=== PATIENT | female | born 1990 | race Caucasian/White ===

== ENCOUNTER → 2020-02-26 07:07 | Outpatient (CLI) | payer OTHER, SELFPAY ==
[2020-02-26 07:59] LABS: Appearance Urine UA CLEAR; Bilirubin Urine UA NEGATIVE (NEGATIVE); Color Urine UA YELLOW; Glucose Urine UA NEGATIVE (Negative); Ketones Urine UA NEGATIVE (NEGATIVE); Leukocyte Esterase Urine UA NEGATIVE (NEGATIVE); Nitrite Urine UA NEGATIVE (Negative); Occult Blood Urine UA NEGATIVE (Negative); Protein Urine UA NEGATIVE (Negative); Specific Gravity Urine UA 1.015 (1.000-1.035); Urobilinogen Urine UA 0.2 E.U./dL (0.2)
[2020-02-26 08:06] LABS: Add Manual Diff / Slide Review NO; Basophils Absolute Auto 0 /uL (0-100); Basophils Percent Auto 0.3 % (0-2); Eosinophils Absolute Auto 100 /uL (0-450); Eosinophils Percent Auto 0.9 % (2-4); Hematocrit 37.2 % (36-46); Hemoglobin 12.5 g/dL (12.0-16.0); Lymphocytes Absolute Auto 1500 /uL (1100-4500); Lymphocytes Percent Auto 23.6 % (25-40); Mean Corpuscular HGB Conc 33.6 % (30-36); Mean Corpuscular Hemoglobin 27.4 PG (26-34); Mean Corpuscular Volume 81.3 fL (80-100); Monocytes Absolute Auto 400 /uL (0-900); Monocytes Percent Auto 5.4 % (3-14); Neutrophils Absolute Auto 4500 /uL (1500-7000); Neutrophils Percent Auto 69.8 % (50-75); Platelet Count 210 X10^3/uL (150-400); Red Blood Cell Count 4.57 X10^6/uL (4.0-5.2); Red Cell Distribution Width 14.3 % (11.6-14.8); White Blood Cell Count 6.5 X10^3/uL (4.5-11.0)
[2020-02-26 09:53] LABS: Hepatitis B Surface Antigen NEGATIVE s/c (NEGATIVE); Rubella Antibody IgG 13.5 IU/mL (>15)
[2020-02-26 09:57] LABS: HIV 1 & 2 Ab/Ag 4th Gen Combo NEGATIVE (NEGATIVE); Hep C Virus Ab w/Reflex Quant NEGATIVE s/c (NEGATIVE)
[2020-02-27 04:36] LABS: RPR Screen Non Reactive (Non Reactive)
[2020-02-27 05:11] LABS: Varicella IgG Antibody 685 index (Immune >165)
== END ==
PROVIDERS: PCP Family Medicine; Referring Provider Family Medicine; Visit Provider Family Medicine
DX: Z34.81 Encounter for supervision of other normal pregnancy, first trimester (principal)
CPT/HCPCS: 36415; 80055; 81003; 86787; 86803; 86850; 86900; 86901; 87086; 87389

== ENCOUNTER → 2020-03-24 07:50 | Outpatient (CLI) | payer OTHER, SELFPAY ==
[2020-03-24 11:14] LABS: GTT (PREG) 1 Hour PP 50gm Dose 104 mg/dL (76-139)
== END ==
PROVIDERS: PCP Family Medicine; Referring Provider Family Medicine; Visit Provider Family Medicine
DX: Z34.81 Encounter for supervision of other normal pregnancy, first trimester (principal); Z86.32 Personal history of gestational diabetes; Z3A.09 9 weeks gestation of pregnancy
CPT/HCPCS: 36415; 82950

== ENCOUNTER → 2020-04-08 16:25 | Outpatient (CLI) | payer OTHER, SELFPAY ==
[2020-04-11 20:54] LABS: AFP, Serum 37.9 ng/mL (.); Calc Gestational Age EDD (.); Estriol, Free 0.88 ng/mL (.); Inhibin A, Dimeric 101.99 pg/mL (.); Inhibin A, MoM 0.71 (.); Maternal Ethnicity Other (.); Maternal Weight 183 lbs (.); Number of Fetuses No (.); OSBR Risk 1 IN 9231 (.); Results Report (.); Test Results *Screen Negative* (.); hCG, MoM 1.09 (.); hCG, Serum 29939 mIU/mL (.)
== END ==
PROVIDERS: PCP Family Medicine; Referring Provider Family Medicine; Visit Provider Family Medicine
DX: Z34.02 Encounter for supervision of normal first pregnancy, second trimester (principal); Z3A.17 17 weeks gestation of pregnancy
CPT/HCPCS: 36415; 82105; 82677; 84702; 86336

== ENCOUNTER → 2020-04-28 12:23 | Outpatient (CLI) | payer OTHER, SELFPAY ==
--- NOTE | 2020-04-28 12:24 | DI.US.S_ITS ---
PROCEDURE: US OB >= 14 WEEKS FETUS INDICATIONS: anatomy screening OUTSIDE/PRIOR DATING DATA: First dating scan (date and location): 02/12/2020 . Estimated date of delivery (KIMBERLY) from first dating scan: 09/15/2020 . TECHNIQUE: Real-time scanning was performed of the fetus, with image documentation and biometric measurements. Endovaginal scanning: No COMPARISON: None. FINDINGS: General: A single living intrauterine gestation is present. Presentation: Vertex. Placenta: Placental position is anterior , without previa. Amniotic fluid index: 12.5 cm, normal range is 5-24 cm. heart rate: 145 beats per minute. Maternal cervical canal: 4.8 cm long. Normal lower limit is 2.5 cm. biometrics: Biparietal diameter: 21 weeks 4 days Head circumference: 21 weeks Abdominal circumference: 21 weeks 4 days Femur length: 21 weeks 3 days Estimated gestational age from initial scan: 20 weeks 0 days Composite gestational age from present scan: 21 weeks 3 days Estimated weight and percentile: 429 g, 99th percentile Measurement variability for biometric dating: +/- 7 days from 14 weeks to 15 weeks 6 days gestation, +/- 10 days from 16 weeks to 21 weeks 6 days gestation, +/- 2 weeks from 22 weeks to 27 weeks 6 days gestation, +/- 3 weeks for 28 weeks gestation or later. weight reference: 4500 g or EFW >90/95% is considered macrosomia or large for gestational age. EFW <10% is small for gestational age. EFW 5% or less is considered intra-uterine growth restriction. Anatomic survey: Neuro: Ventricles are non-dilated at less than 10 mm. Cisterna magna is normal at 3-11 mm. Cerebellum is normal in size and morphology. Nuchal skin fold: Normal at less than 6 mm between 14-21 weeks gestational age. Face: Nose and lips, facial profile are normal. Spine: No evidence for spina bifida. Heart: 4-chambered heart is present, with normal ventricular outflow tracts. Diaphragm: Diaphragm is intact. Stomach: Left-sided stomach is present. Kidneys: No hydronephrosis. Normal is less than 5 mm in 2nd trimester, less than 7 mm in 3rd trimester. Cord: 3-vessel cord has orthotopic insertion. Bladder: Normal in size. Extremities: All 4 extremities identified. IMPRESSION: 1. Single living fetus redemonstrated and interval growth is greater than expected with estimated weight 99th percentile. Follow-up recommended. 2. Normal anatomic survey. Dictated by: Omar Ellis Joe Interpreted: Chris Rosenthal MD on 04/28/2020 at 14:11 Approved by: Chris Rosenthal M.D. on 04/28/2020 at 17:30
== END ==
PROVIDERS: PCP Family Medicine; Referring Provider Family Medicine; Visit Provider Family Medicine
DX: Z36.89 Encounter for other specified antenatal screening (principal); Z3A.21 21 weeks gestation of pregnancy
CPT/HCPCS: 76811

== ENCOUNTER → 2020-06-23 07:00 | Outpatient (CLI) | payer OTHER, SELFPAY ==
[2020-06-23 08:42] LABS: Add Manual Diff / Slide Review NO; Basophils Absolute Auto 0 /uL (0-100); Basophils Percent Auto 0.2 % (0-2); Eosinophils Absolute Auto 100 /uL (0-450); Eosinophils Percent Auto 1.1 % (2-4); Hematocrit 31.5 % (36-46); Hemoglobin 10.4 g/dL (12.0-16.0); Lymphocytes Absolute Auto 1500 /uL (1100-4500); Lymphocytes Percent Auto 21.5 % (25-40); Mean Corpuscular HGB Conc 32.9 % (30-36); Monocytes Absolute Auto 400 /uL (0-900); Monocytes Percent Auto 5.6 % (3-14); Neutrophils Absolute Auto 4900 /uL (1500-7000); Neutrophils Percent Auto 71.6 % (50-75); Platelet Count 189 X10^3/uL (150-400); White Blood Cell Count 6.8 X10^3/uL (4.5-11.0)
[2020-06-23 09:10] LABS: GTT (PREG) 1 Hour PP 50gm Dose 155 mg/dL (76-139)
== END ==
PROVIDERS: PCP Family Medicine; Referring Provider Family Medicine; Visit Provider Family Medicine
DX: O09.299 Supervision of pregnancy with other poor reproductive or obstetric history, unspecified trimester (principal); Z86.32 Personal history of gestational diabetes
CPT/HCPCS: 36415; 82950; 85025

== ENCOUNTER → 2020-06-25 07:02 | Outpatient (CLI) | payer OTHER, SELFPAY ==
[2020-06-25 08:40] LABS: Glucose Fasting 91 mg/dL (70-100)
[2020-06-25 10:10] LABS: Glucose 1 Hour 156 mg/dL (70-170)
[2020-06-25 10:42] LABS: Glucose Tol Interpretation INTERPRETATION
[2020-06-25 11:21] LABS: Glucose 2 Hour 134 mg/dL (70-140)
[2020-06-25 12:41] LABS: Glucose 3 Hour 113 mg/dL (70-115)
== END ==
PROVIDERS: PCP Family Medicine; Referring Provider Family Medicine; Visit Provider Family Medicine
DX: O09.299 Supervision of pregnancy with other poor reproductive or obstetric history, unspecified trimester (principal); Z86.32 Personal history of gestational diabetes
CPT/HCPCS: 36415; 82951; 82952

== ENCOUNTER → 2020-07-01 09:48 | Outpatient (CLI) | payer OTHER, SELFPAY ==
--- NOTE | 2020-07-01 09:50 | DI.US.S_ITS ---
PROCEDURE: US OB LIMITED INDICATIONS: LGA OUTSIDE/PRIOR DATING DATA: Last menstrual period (LMP): Unknown. LMP-based estimated date of delivery (KIMBERLY): Unknown . First dating scan (date and location): 02/12/20 . Estimated date of delivery (KIMBERLY) from first dating scan: 09/15/20 . TECHNIQUE: Real-time scanning was performed of the fetus, with image documentation and biometric measurements. Endovaginal scanning: Not performed COMPARISON: [facility], OB >= 14 WEEKS FETUS, 04/28/2020, 12:39. FINDINGS: General: A single living intrauterine gestation is present. Presentation: Vertex. Placenta: Placental position is anterior left , without previa. Amniotic fluid index: 16.5 cm, normal range is 5-24 cm. heart rate: 144 beats per minute. Maternal cervical canal: 4.5 cm long. Normal lower limit is 2.5 cm. biometrics: Biparietal diameter: 7.9 cm, 31 weeks 6 days Head circumference: 29.0 cm, 32 weeks 0 days Abdominal circumference: 28.4 cm, 32 weeks 3 days Femur length: 5.7 cm, 29 weeks 6 days Estimated gestational age from initial scan: 29 weeks 1 day Composite gestational age from present scan: 31 weeks 4 days Estimated weight and percentile: 1794 g, 99th percentile. Measurement variability for biometric dating: +/- 7 days from 14 weeks to 15 weeks 6 days gestation, +/- 10 days from 16 weeks to 21 weeks 6 days gestation, +/- 2 weeks from 22 weeks to 27 weeks 6 days gestation, +/- 3 weeks for 28 weeks gestation or later. weight reference: 4500 g or EFW >90/95% is considered macrosomia or large for gestational age. EFW <10% is small for gestational age. EFW 5% or less is considered intra-uterine growth restriction. Other: Not applicable. IMPRESSION: Single living intrauterine fetus in vertex presentation. Estimated weight at the 99th percentile (as before) Normal KARENA Dictated by: Crow Trent M.D. on 07/01/2020 at 16:21 Approved by: Crow Trent M.D. on 07/01/2020 at 16:27
== END ==
PROVIDERS: PCP Family Medicine; Referring Provider Family Medicine; Visit Provider Family Medicine
DX: O36.63X0 Maternal care for excessive fetal growth, third trimester, not applicable or unspecified (principal); Z3A.31 31 weeks gestation of pregnancy
CPT/HCPCS: 36415; 76815; 86850

== ENCOUNTER → 2020-07-22 11:07 | Outpatient (CLI) | payer OTHER, SELFPAY ==
--- NOTE | 2020-07-22 12:11 | DIET.PN ---
INITIAL GESTATIONAL DIABETES ASSESSMENT ASSESS:? Ms. Araya referred for gestational diabetes. Pt is G2, P1 with hx of GDM with first . She reports FBG >95 and 1-2 hr PP 120-140. Has noticed higher fasting readings. She is very active at work ([employer]) and reports low readings most of the time during the day. ? KIMBERLY:?09/14/2020 ? WKS GESTATION:?? 32wks ?LABS: F-91 1?- 156 2?- 134 3?- 113 ? MEDS: no meds ? DIET:? B: protein oatmeal, w/ coffee w/ premier protein creamer L: [place] chipotle sandwich from [employer] Sn: crackers or pretzels w/ pb D: Steak/chicken, quinoa, veggies Ev Sn: ice cream ? HT:? 64in ? PRE-PREG WT:? 190lb ? PRE-PREG BMI:??32.6 ? CURRENT WT: 185lb ? TOTAL WT GAIN:? -5lb EXERCISE: job ([employer]) NUTRITION DX 1. Altered nutrition related lab values r/t gestational diabetes as evidenced by recent labs (OGGT). INTERVENTION 1. Discussed pathophysiology of gestational diabetes and impact of hormone and nutrition/diet on blood sugar control.? Discussed fed versus non-fed state.? 2. Recommended checking fasting, pre-meal and 1hr post prandial (3x/day).? Discussed goals for glycemic control (<95 FBG, <140 1-hr PP, <125 2-hr PP).? 3. Discussed the effect of carbohydrates/protein/fat on blood sugar control.? Stressed importance of consistent carbohydrate intake at each meal and provided instructions for recommended servings/portions of carbohydrates/protein per meal.? Provided pt with educational material. 4. Introduced carbohydrate counting and measuring carbohydrate content via servings sizes and reading nutrition labels.? Provided handouts.? Pt will need further review 5. Discussed importance of meal timing and not going >3 hours between meals.? Provided sample meal schedule for pt.? Pt agreeable.?? 6. Discussed importance a pre- vitamin and including food sources of calcium, vitamin D, iron and folic acid for baby and mother?s nutrition support. 7. Discussed caffeine intake. Recommend no more than 200 mg/day (1 cup coffee). 8. Discussed rule of 15 for hypoglycemia. 9. Recommend patient purchase Urine Ketone strips and instructed on use and when to contact provider. 10. Recommended patient continue exercise as appropriate per PCP approval. 11. Patient may need medication management, will follow-up with plan of care at next visit after reviewing glucose results.? MONITOR/EVAL: Follow up scheduled X 1 week. Good compliance expected. Review: carb sources, carb counting, portion size, meal timing, BG log, weight.
== END ==
PROVIDERS: Family Provider Family Medicine; PCP Family Medicine; Referring Provider Family Medicine; Visit Provider Family Medicine
DX: O24.410 Gestational diabetes mellitus in pregnancy, diet controlled (principal); Z3A.32 32 weeks gestation of pregnancy; Z71.3 Dietary counseling and surveillance
CPT/HCPCS: G0108

== ENCOUNTER 2020-07-28 08:48 | Outpatient (RCR) | payer OTHER, SELFPAY ==
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
--- NOTE | 2020-07-28 13:41 | PT.OPPOC ---
Physical, Occupational & Speech Therapy At [facility] Current Diagnoses Sciatica, unspecified side (07/28/20) Visit Care Team Role Provider Type Danielle Herrera MD Attending Provider Physician Family Provider Primary Care Provider Referring Provider Specialty: Family Practice Address: [address] [place] [address], [id number] Email: [email or web address] Plan Of Care PT-OP-T Assessment and Plan Start: 07/28/20 12:06 Freq: Status: Active Protocol: Document 07/28/20 09:01 (Rec: 07/28/20 12:31 [email or web address]) Physical Therapy Assessment Rehab Potential Rehabilitation Potential Excellent Evaluation Complexity Number of Personal Factors/Comorbidities 0 Number of Body Systems Impaired 1-2 Clinical Presentation at Evaluation Stable Impairments Impairments Activity Tolerance,Functional Activities,Functional Mobility ,Pain,Posture,ROM,Soft Tissue Mobility,Strength,Tone, Transfers Goals sciatic symptoms Impairment pt has sciatica symptoms during lifting, prolonged walking and standing Short Term Goal (STG) pt will be able to lift, walking and stand with pain no more than 4/10 and good understanding body mechanics. STG Duration 5 weeks Dining Room Cashier Goal (LTG) pt will be able to lift, walking and stand with pain no more than 2/10 and good understanding body mechanics. LTG Duration 10 weeks HEP Impairment pt does not have a HEP Dining Room Cashier Goal (LTG) pt will be able to complete HEP independently and safely to improve her overall functional mobility and strength LTG Duration 5 weeks activity tolerance Impairment pt tends to have increase pain by walking/ standing more than 15 mins Short Term Goal (STG) pt will be able to tolerate standing/ walking more than 30 minutes without increase in symptoms STG Duration 5 weeks Dining Room Cashier Goal (LTG) pt will be able to tolerate standing/ walking more than 60 minutes without increase in symptoms LTG Duration 10 weeks Oswestry Impairment pt scores 22 on Oswestry Short Term Goal (STG) pt will score less than 18 on Oswestry to show improved overall activity tolerance and reduced pain STG Duration 5 weeks Usp Goal (LTG) pt will score less than 15 on Oswestry to improve her overall quality of life. LTG Duration 10 weeks Assessment Summary Assessment Pt is a 30 yo woman ( due date in Mid-August) here for her chronic LBP and new onset of L anterior hip. Upon assessment, Pt presents R piriformis syndrome whose pain was reproduced with figure 4 stretch/ piriformis stretch but no signs of radiculopathy (-ve for slump test and SLR). There;s noticeable hypertonicity on lumbar paraspinals possible d/t her significant anterior pelvic tilt d/t which increases mechanical stress at lumbar spinal segments. Besides, pt has L hip flexor strain possibly d/t her anterior pelvic tilt with long standing hourse at work. Provided hip flexor stretch, tennis ball release, figure 4 stretch and clam shell for HEP . Pt will benefit from skilled therapy to address her current symptoms and expect her to cont therapy to improve her trunk stability and strength in order for her to endure her physical demanding job nature. Physical Therapy Plan Frequency and Duration Frequency of Treatment 1x/Week Duration of Treatment 10 weeks Plan of Care Start Date 07/28/20 Plan of Care End Date 10/11/20 Therapeutic Interventions Therapeutic Interventions Balance Training,Gait Training ,Home Exercise Program,Joint Mobilizations,Manual Therapy, Neuromuscular Re-education, Patient/Caregiver Education, Self-Care/Home Management,Soft Tissue Mobilization,Taping, Therapeutic Activities, Therapeutic Exercises Modalities Cold Pack/Ice Massage,Hot Packs Next Visit Focus/Plan Next Note Type Treatment Note Next Visit Plan review HEP manual on glute and piriformis piriformis stretch pelvic tilt in supine abdominal brace l hip flexor stretch Plan of Care Dates Plan of Care Start Date 07/28/20 Plan of Care End Date 10/11/20 Electronically Signed by: Geraldine Lieberman PT 07/28/20 2171 Please Sign and Return: I have reviewed this Plan of Care and certify that the skilled therapy services above are required to meet the patient?s needs. Physician Signature Date Printed Name and Credentials Clinical Instructor Signature Printed Name and Credentials
--- NOTE | 2020-08-14 09:08 | PT.OPDS ---
Current Diagnoses Sciatica, unspecified side (07/28/20) Visit Care Team Role Provider Type Danielle Herrera MD Attending Provider Physician Family Provider Primary Care Provider Referring Provider Specialty: Family Practice Address: [address] [place] [address], [facility] Email: [email or web address] Visit Number Visit Number Discharge Summary PT-OP-T Assessment and Plan Start: 07/28/20 12:06 Freq: Status: Active Protocol: Document 08/14/20 09:07 (Rec: 08/14/20 09:07 [email or web address]) Physical Therapy Plan Discharge Physical Therapy Discharge Reasons Patient Request Discharge Comments Called pt via phone today and pt said she is doing well and does not feel the need for PT anymore. Requested to be DC
== END 2020-12-30 14:49 | disposition home or self-care (01) ==
LOC: PHYS 08:48
PROVIDERS: Family Provider Family Medicine; PCP Family Medicine; Referring Provider Family Medicine; Visit Provider Family Medicine
DX: M54.30 Sciatica, unspecified side (principal)
CPT/HCPCS: 97110; 97161

== ENCOUNTER → 2020-07-29 07:47 | Outpatient (CLI) | payer OTHER, SELFPAY ==
--- NOTE | 2020-07-29 07:48 | DI.US.S_ITS ---
PROCEDURE: US OB LIMITED INDICATIONS: f/u growth, LGA, GDM OUTSIDE/PRIOR DATING DATA: First dating scan (date and location): 02/12/2020 . Estimated date of delivery (KIMBERLY) from first dating scan: 09/15/2020 . TECHNIQUE: Real-time scanning was performed of the fetus, with image documentation and biometric measurements. Endovaginal scanning: No COMPARISON: [facility], OB >= 14 WEEKS FETUS, 04/28/2020, 12:39. [facility], OB LIMITED, 07/01/2020, 9:55. FINDINGS: General: A single living intrauterine gestation is present. Presentation: Vertex. Placenta: Placental position is anterior , without previa. Amniotic fluid index: 16.4 cm, normal range is 5-24 cm. heart rate: 158 beats per minute. Maternal cervical canal: 4.9 cm long. Normal lower limit is 2.5 cm. biometrics: Biparietal diameter: 35 weeks Head circumference: 35 weeks 5 days Abdominal circumference: 38 weeks 1 day Femur length: 33 weeks 4 days Estimated gestational age from initial scan: 33 weeks 1 day Composite gestational age from present scan: 35 weeks 4 days Estimated weight and percentile: 2933 g; greater than the 99th percentile Measurement variability for biometric dating: +/- 7 days from 14 weeks to 15 weeks 6 days gestation, +/- 10 days from 16 weeks to 21 weeks 6 days gestation, +/- 2 weeks from 22 weeks to 27 weeks 6 days gestation, +/- 3 weeks for 28 weeks gestation or later. weight reference: 4500 g or EFW >90/95% is considered macrosomia or large for gestational age. EFW <10% is small for gestational age. EFW 5% or less is considered intra-uterine growth restriction. Other: Not applicable. IMPRESSION: Single living IUP redemonstrated and estimated weight is greater than the 99th percentile. Macrosomia is suspected and close clinical correlation and follow-up is recommended.. Dictated by: Omar HOOD Interpreted: Elisa Marie MD on 07/29/2020 at 9:31 Approved by: Elisa Marie M.D. on 07/29/2020 at 13:31
== END ==
PROVIDERS: Family Provider Family Medicine; PCP Family Medicine; Referring Provider Family Medicine; Visit Provider Family Medicine
DX: Z36.2 Encounter for other antenatal screening follow-up (principal); O24.419 Gestational diabetes mellitus in pregnancy, unspecified control; Z3A.35 35 weeks gestation of pregnancy
CPT/HCPCS: 76815

== ENCOUNTER → 2020-08-15 16:20 | Outpatient (CLI) | payer OTHER, SELFPAY ==
[2020-08-17 08:21] LABS: Strep Grp B PCR POS for Grp B Strep
== END ==
PROVIDERS: Family Provider Family Medicine; PCP Family Medicine; Visit Provider Family Medicine
DX: Z34.83 Encounter for supervision of other normal pregnancy, third trimester (principal); Z3A.35 35 weeks gestation of pregnancy
CPT/HCPCS: 87653

== ENCOUNTER → 2020-08-26 15:35 | Outpatient (CLI) | payer OTHER, SELFPAY ==
--- NOTE | 2020-08-26 15:37 | DI.US.S_ITS ---
PROCEDURE: US OB LIMITED INDICATIONS: LARGE FOR GESTATIONAL AGE OUTSIDE/PRIOR DATING DATA: First dating scan (date and location): 02/12/2020 . Estimated date of delivery (KIMBERLY) from first dating scan: 09/15/2020 . TECHNIQUE: Real-time scanning was performed of the fetus, with image documentation and biometric measurements. Endovaginal scanning: No COMPARISON: [facility], OB LIMITED, 07/29/2020, 8:00. FINDINGS: General: A single living intrauterine gestation is present. Presentation: Vertex. Placenta: Placental position is anterior , without previa. Amniotic fluid index: 11.3 cm, normal range is 5-24 cm. heart rate: 135 beats per minute. Maternal cervical canal: 5.5 cm long. Normal lower limit is 2.5 cm. biometrics: Biparietal diameter: 38 weeks 3 days Head circumference: 39 weeks 2 days Abdominal circumference: 41 weeks 4 days Femur length: 36 weeks 3 days Estimated gestational age from initial scan: 37 weeks 1 day Composite gestational age from present scan: 39 weeks Estimated weight and percentile: 3935 g, 99th percentile Measurement variability for biometric dating: +/- 7 days from 14 weeks to 15 weeks 6 days gestation, +/- 10 days from 16 weeks to 21 weeks 6 days gestation, +/- 2 weeks from 22 weeks to 27 weeks 6 days gestation, +/- 3 weeks for 28 weeks gestation or later. weight reference: 4500 g or EFW >90/95% is considered macrosomia or large for gestational age. EFW <10% is small for gestational age. EFW 5% or less is considered intra-uterine growth restriction. Other: Not applicable. IMPRESSION: Single living IUP redemonstrated and estimated weight is at greater than 99th percentile. Macrosomia cannot be excluded and close clinical correlation is recommended. Dictated by: Omar Ellis [facility] Interpreted: Christopher Gupta MD on 08/26/2020 at 17:24 Approved by: Christopher Gupta M.D. on 08/26/2020 at 17:31
== END ==
PROVIDERS: Family Provider Family Medicine; PCP Family Medicine; Referring Provider Family Medicine; Visit Provider Family Medicine
DX: Z36.88 Encounter for antenatal screening for fetal macrosomia (principal); Z3A.39 39 weeks gestation of pregnancy
CPT/HCPCS: 76815

== ENCOUNTER 2020-09-07 19:35 | Inpatient (IN) | payer OTHER, SELFPAY ==
[2020-09-07] MEDS: miSOPROStoL 25 MCG TABLET VAG (20:21)
[2020-09-07 21:00] LABS: COVID19 - ADMIT (NP swab/PCR) Negative (Negative)
[2020-09-07 21:01] LABS: Add Manual Diff / Slide Review NO; Basophils Absolute Auto 0 /uL (0-100); Basophils Percent Auto 0.2 % (0-2); Eosinophils Absolute Auto 100 /uL (0-450); Eosinophils Percent Auto 0.9 % (2-4); Hematocrit 35.5 % (36-46); Hemoglobin 12.1 g/dL (12.0-16.0); Lymphocytes Absolute Auto 1800 /uL (1100-4500); Lymphocytes Percent Auto 19.4 % (25-40); Mean Corpuscular Volume 85.4 fL (80-100); Monocytes Absolute Auto 600 /uL (0-900); Monocytes Percent Auto 6.4 % (3-14); Neutrophils Absolute Auto 6700 /uL (1500-7000); Neutrophils Percent Auto 73.1 % (50-75); Platelet Count 163 X10^3/uL (150-400); Red Blood Cell Count 4.16 X10^6/uL (4.0-5.2); White Blood Cell Count 9.1 X10^3/uL (4.5-11.0)
[2020-09-07 21:25] VITALS: BP 109/68
[2020-09-08] MEDS: PENICILLIN G POTASSIUM 5,000,000 UNIT in DEXTROSE 5% IN WATER 250 ML IV (08:38)
[2020-09-08] MEDS: LACTATED RINGERS 1,000 ML 100 ML IV ×2 (08:38→14:40)
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
[2020-09-08] MEDS: OXYTOCIN PREMIX 30 UNIT/500 ML PLAST..BAG IV (11:30)
[2020-09-08] MEDS: PENICILLIN G POTASSIUM 3,000,000 UNIT/50 ML FROZ.PIGGY 100 UNIT IV ×2 (12:58→16:58)
--- NOTE | 2020-09-08 13:16 | PM.OBPNLAB ---
Date/Time Date Patient Seen: 09/08/20 Time Patient Seen: 13:16 Pain Control Pain control: tolerating well Pelvic Exam Dilation (cm): 4 Effacement (%): 50 station: -3 Amniotic membrane status: Ruptured Comments: After informed consent and head noted to be applied to cervix, AROM performed with production of clear fluid. Contractions Pitocin rate (mU/min): 4 Contraction frequency (min): 2 Contraction pattern: Regular Contraction intensity: Strong/Firm Status Heart Rate Baseline: 120 Monitor Accelerations: Present Monitor Decelerations: Absent Monitor Variability: Moderate Assessment and Plan Comments: 30yo at 39w1d here for IOL due to GDMA1 with LGA fetus. Last EFW at 37w2d 3935g. Pt counseled regarding risks of vaginal delivery with possibility of shoulder dystocia extensively in clinic prior to IOL, and again this morning. Pt continues to desire attempt at vaginal delivery. Discussed that if baby without appropriate continuous descent throughout IOL, will proceed with . Received one dose cytotec overnight. Akbar placed this morning, fell out a few hours later. GBS prophylaxis adequate, AROM performed with production of copious clear fluid. GBS positive, Rh negative (received Rhogam). - Expectant management, planning on vaginal delivery - Start pitocin, titrate as tolerated - GBS positive, continue penicillin prophylaxis - already adequate - Rh negative, plan for cord blood after delivery - Epidural for pain control now - FHT reassuring
[2020-09-08] MEDS: FENT 2MCG/ML BUPIV 0.125% EPI 200 MCG/100 ML PLAST..BAG 10 MCG EPIDURAL (13:23)
[2020-09-08] MEDS: DERMOPLAST SPRAY 20% 60 ML 1 SPRAY TOP (20:55)
[2020-09-08] MEDS: IBUPROFEN 600 MG TABLET PO (20:56)
--- NOTE | 2020-09-08 21:05 | PM.OBPNLAB ---
Date/Time Date Patient Seen: 09/08/20 Time Patient Seen: 15:15 Pain Control Pain control: epidural Pelvic Exam Dilation (cm): 8 Effacement (%): 75 station: -1 Amniotic membrane status: Ruptured Contractions Contraction frequency (min): 3 Contraction pattern: Regular Contraction intensity: Strong/Firm Status status: Category ll Heart Rate Baseline: 150 Monitor Accelerations: Present Monitor Decelerations: Variable (recurrent) Monitor Variability: Moderate Assessment and Plan Comments: 30yo at 39w1d here for IOL due to GDMA1 with LGA fetus. Last EFW at 37w2d 3935g. Pt counseled regarding risks of vaginal delivery with possibility of shoulder dystocia extensively in clinic prior to IOL, and again this morning. Pt continues to desire attempt at vaginal delivery. Discussed that if baby without appropriate continuous descent throughout IOL, will proceed with . Received one dose cytotec overnight. Akbar placed this morning, fell out a few hours later. AROM with clear fluid. Now on pitocin with recurrent variable decels. Pitocin stopped, but decels have persisted. IUPC placed with amnioinfusion to begin. GBS positive, Rh negative (received Rhogam). - Expectant management, planning on vaginal delivery - Hold pitocin pending improvement in FHT - IUPC with amnioinfusion to run - FHT Category II with recurrent variable decels. If do not improve with amnioinfusion plan on . Due to high risk of shoulder dystocia already present, do not want to have vaginal delivery with already stressed baby. - GBS positive, continue penicillin prophylaxis - already adequate - Rh negative, plan for cord blood after delivery - Epidural for pain control now
--- NOTE | 2020-09-08 21:07 | P.PCNOB_ITS ---
Events: Gestational Diabetes, Labor Induction and Other (LGA) Labor & Delivery Delivery date: 09/08/20 Estimated blood loss (mL): 100 Complications: None Narrative: PROCEDURE: at 39w1d presented for IOL for GDMA1 and LGA fetus and was admitted to Labor and Delivery. The patient progressed through the 1st stage over 4 hours. She received cytotec followed by a leach catheter. The leach catheter fell out spontaneously, and then pitocin was initiated. AROM was performed with production of clear fluid. Pain was controlled with an epidural. Due to recurrent variable decels, IUPC was placed with amnioinfusion initiated, with improvement in FHT tracing. The patient progressed through the 2nd stage over 1 hours and delivered a viable male with APGARs 8/9 at 18:26 via without complications. The cords was clamped and cut after > 5 minutes. The perineum and vagina were inspected with 2nd degree laceration repaired with 2-O Vicryl. PREPROCEDURE DIAGNOSIS: Intrauterine at 39w1d GBS positive RH negative GDMA1 LGA fetus POSTPROCEDURE DIAGNOSIS: Intrauterine at 39w1d, delivered Same as preprocedure PROCEDURE: INDUCTION: Cytotec, leach catheter LABOR AUGMENTATION: AROM, Pitocin ROM APPEARANCE: Clear BABY A DELIVERY TIME: 18:26 BABY A OUTCOME: Viable BABY A SEX: Male BABY A WEIGHT: 9lb6oz BABY A PRESENTATION: Vertex BABY A POSITION: OA BABY A NUCHAL CORD: None BABY A # CORD VESSELS: 3 BABY A CORD GASES OBTAINED: No PLACENTA DELIVERY TIME: 18:35 PLACENTAL DELIVERY TYPE: Spontaneous PLACENTA APPEARANCE: Intact [place] Baby 1: Infant gender: Male score (1 min): 8 score (5 min): 9 Plan for aftercare: Routine care
[2020-09-09 02:01] VITALS: TEMP 36.7
[2020-09-09] MEDS: ACETAMINOPHEN 325 MG TABLET 650 MG PO ×3 (02:01→15:09)
[2020-09-09] MEDS: IBUPROFEN 600 MG TABLET PO ×3 (03:10→17:13)
[2020-09-09] MEDS: DOCUSATE 100 MG CAPSULE PO (08:29)
[2020-09-09 11:27] VITALS: TEMP 36.5
--- NOTE | 2020-09-09 13:14 | PM.OBDS.1 ---
Discharge Providers Provider Date of admission: 09/07/20 19:35 Discharge Date: 09/09/20 Primary care physician: Danielle Herrera MD Consults: 09/09/20 18:59 Consult to [employer] Routine Comment: Discharge provider: Danielle Herrera MD Summary Hospital Course Date Patient Seen: 09/09/20 Time Patient Seen: 07:55 Diagnoses: 39w1d gestation GDMA1 LGA fetus Rh negative GBS positive Hospital Course: The pt presented for IOL due to LGA with GDMA1. She received cytotec for induction, followed by leach catheter, pitocin, and AROM. She had an epidural for pain control. She received adequate GBS prophylaxis with penicillin. Amnioinfusion was initiated due to recurrent variables, which then improved. She progressed to complete and had an of a viable baby boy on 09/08/30. A 2nd degree perineal laceration was then repaired. There were no complications with delivery. , there were no complications. At the time of discharge she was voiding, ambulating, and passing flatus without difficulty. Her lochia was decreasing appropriately. She was with good latch. Her pain was well controlled. Rhogam was given due to the baby being O+. Pt will f/u in 6 weeks for check. She likely desires OCPs for contraception. Peripartum Data Delivery Method: Natural Vaginal Laceration Description: Perineal - 2nd Degree Episiotomy description: None complications: none [place] 1: Gender: Male Disposition of : home Discharge Diagnosis (1) Spontaneous vaginal delivery: Status: Acute (2) Large for gestational age fetus: Status: Acute (3) Gestational diabetes: Status: Acute Status at Discharge Cognitive/behavioral status at discharge: oriented Functional status at discharge: independent ambulation Overall status at discharge: patient is progressing back to baseline Time Spent with Patient Time attestation: Total time spent providing and/or coordinating discharge services: Objective Labs Result Diagrams: 09/07/20 20:04 Labs: Laboratory Results - last 24 hr 09/09/20 06:26 Maternal Bleed Negative Exam Vital Signs (past 8 hours): - 09/09/20 11:27 Temperature 97.7 F Narrative Exam Narrative: Gen: NAD, sitting comfortably in bed, appears well CV: RRR, no murmurs Resp: clear to auscultation bilaterally Abd: soft, appropriately tender, fundus firm and below the umbilicus, nondistended Ext: no edema Discharge Plan Discharge Plan Patient Disposition: Home Discharge orders & Medications Prescriptions: New docusate sodium [DOK] 100 mg Capsule 100 mg PO DAILY Qty: 30 RF: 0 ibuprofen 600 mg Tablet 600 mg PO Q6HR PRN (Reason: Pain, Mild (1-3)) Qty: 30 RF: 0 Continued prenat.vits,anna,[id number] Tablet 1 tab PO DAILY RF: 0 ferrous sulfate 325 mg (65 mg iron) Tablet 325 mg PO DAILY RF: 0 famotidine 1 tab PO DAILY RF: 0 Follow up/Referrals: Danielle Herrera MD [Primary Care Provider] - 6 Weeks (Please follow up with Dr. Herrera on TuesdayOctober 20 at 3:30 with a 3:15 check in time. If you have any questions/concerns or need to reschedule please call .) Diet/Activity/Treatments Diet: Diet as Tolerated and Regular Skin/Wound/Dressing Care Report to your healthcare provider any signs of infection, such as:: chills, fever, increased pain and unusual drainage Visit Report/Discharge Packet Instructions: DI for Labor and Delivery, Vaginal Stand Alone Forms: Discharge: Care Visit Report Forms: Patient Portal/API, Stroke Signs & Symptoms Discharge Data Primary Care Provider: Danielle Herrera
[2020-09-09 14:29] VITALS: BP 108/57; PULSE 68; RESP 18; TEMP 36.5
[2020-09-09] MEDS: DERMOPLAST SPRAY 20% 60 ML 1 SPRAY TOP (17:17)
[2020-09-09] MEDS: RHO(D) IMMUNE GLOBULIN 1,500 UNIT SYRINGE 1500 UNIT IM (18:48)
== END 2020-09-09 19:10 | disposition home or self-care (01) | DRG 807 ==
PROVIDERS: Admitting Provider Family Medicine; Family Provider Family Medicine; PCP Family Medicine; Referring Provider Family Medicine; Visit Provider Family Medicine
DX: O24.420 Gestational diabetes mellitus in childbirth, diet controlled (principal); Z37.0 Single live birth; Z3A.39 39 weeks gestation of pregnancy; O99.824 Streptococcus B carrier state complicating childbirth; O70.1 Second degree perineal laceration during delivery; O36.63X0 Maternal care for excessive fetal growth, third trimester, not applicable or unspecified; O77.8 Labor and delivery complicated by other evidence of fetal stress; Z20.822 Contact with and (suspected) exposure to COVID-19
CPT/HCPCS: 01967; 36415; 59050; 59400; 85025; 85461; 86850; 86870; 86900; 86901; 87635; C9803; G0379; J2540; J2590; J2790

== ENCOUNTER → 2020-09-22 12:15 | Outpatient (CLI) | payer OTHER, SELFPAY ==
[2020-09-22 13:09] LABS: Appearance Urine UA CLEAR; Bilirubin Urine UA NEGATIVE (NEGATIVE); Color Urine UA YELLOW; Glucose Urine UA TRACE g/dL (Negative); Ketones Urine UA TRACE (NEGATIVE); Leukocyte Esterase Urine UA TRACE (NEGATIVE); Nitrite Urine UA NEGATIVE (Negative); Occult Blood Urine UA 3+ (Negative); Protein Urine UA 1+ (Negative); Specific Gravity Urine UA >=1.030 (1.000-1.035); Urobilinogen Urine UA 0.2 E.U./dL (0.2)
[2020-09-22 13:24] LABS: pH Urine UA 5.5 (4.5-8.0)
[2020-09-22 13:25] LABS: Bacteria Urine Few (2-10); Culture Indicated Urine Specimen Cultured; RBC Urine 5-10/HPF (0-5/HPF); Squamous Epithelial Cell Urine 0-1 /HPF (0-5/HPF); WBC Urine 5-10/HPF (0-5/HPF)
== END ==
PROVIDERS: Family Provider Family Medicine; PCP Family Medicine; Referring Provider Family Medicine; Visit Provider Family Medicine
DX: R32 Unspecified urinary incontinence (principal)
CPT/HCPCS: 81001; 87086

== ENCOUNTER → 2020-10-22 13:13 | Outpatient (CLI) | payer OTHER, SELFPAY | PROVIDERS: Family Provider Family Medicine; PCP Family Medicine; Visit Provider Family Medicine | DX: O92.29 Other disorders of breast associated with pregnancy and the puerperium (principal); K90.89 Other intestinal malabsorption | CPT/HCPCS: 87070; 87075; 87077; 87102; 87147; 87186; 87205 ==

== ENCOUNTER → 2021-11-04 10:22 | Outpatient (CLI) | payer OTHER, SELFPAY ==
[2021-11-04 13:25] LABS: Thyroid Stimulating Hormone 0.749 uIU/mL (0.47-4.68)
== END ==
PROVIDERS: Family Provider Family Medicine; PCP Family Medicine; Referring Provider Family Medicine; Visit Provider Family Medicine
DX: F41.9 Anxiety disorder, unspecified (principal); G47.00 Insomnia, unspecified
CPT/HCPCS: 36415; 84443

== ENCOUNTER → 2021-12-28 15:42 | Outpatient (CLI) | payer OTHER, SELFPAY ==
--- NOTE | 2021-12-28 15:43 | DI.US.S_ITS ---
PROCEDURE: US OB <= 14 WEEKS FETUS INDICATIONS: DATES OUTSIDE/PRIOR DATING DATA: First dating scan (date and location): 12/28/2021. Estimated date of delivery (KIMBERLY) from first dating scan: 07/17/2022. The calculations are made using the ultrasound KIMBERLY of 07/17/2022. TECHNIQUE: Real-time scanning was performed of the fetus and maternal pelvic organs, with image documentation. Endovaginal scanning was also performed to better visualize the fetus and maternal ovaries. COMPARISON: None. FINDINGS: Embryo: [place]-rump length measures 4.4 cm corresponding to 11 weeks 2 days. Heart rate: 163 Maternal organs: 4 cm left ovarian cyst. IMPRESSION: 1. 11 week 2 day single living IUP. 2. 4 cm simple left ovarian cyst. We strive to produce accurate, complete, and clear reports of imaging services. To assist us in improving patient care, this report was composed using standard report templates and voice recognition software. Therefore, it may contain abnormal punctuation, insertions and/or omissions. Occasional wrong-word or sound-alike substitutions may occur. Though we review the report and make efforts to correct it, we do recommend that the report be read carefully in proper context to recognize any text inaccuracies. Dictated by: Omar HOOD Interpreted: Kevyn Ambriz MD on 12/28/2021 at 16:35 Transcribed by: SAM on 12/28/2021 at 16:36 Approved by: Kevyn Ambriz M.D. on 12/28/2021 at 16:52
== END ==
PROVIDERS: Family Provider Family Medicine; PCP Family Medicine; Referring Provider Family Medicine; Visit Provider Family Medicine
DX: O34.81 Maternal care for other abnormalities of pelvic organs, first trimester (principal); N83.292 Other ovarian cyst, left side; Z3A.11 11 weeks gestation of pregnancy
CPT/HCPCS: 76801; 76817

== ENCOUNTER → 2022-01-25 12:50 | Outpatient (CLI) | payer OTHER, SELFPAY ==
[2022-01-25 14:06] LABS: Appearance Urine UA CLEAR; Bilirubin Urine UA NEGATIVE (NEGATIVE); Color Urine UA YELLOW; Glucose Urine UA NEGATIVE (Negative); Ketones Urine UA NEGATIVE (NEGATIVE); Leukocyte Esterase Urine UA NEGATIVE (NEGATIVE); Nitrite Urine UA NEGATIVE (Negative); Occult Blood Urine UA NEGATIVE (Negative); Protein Urine UA NEGATIVE (Negative); Specific Gravity Urine UA 1.025 (1.000-1.035); Urobilinogen Urine UA 0.2 E.U./dL (0.2)
[2022-01-25 14:23] LABS: Add Manual Diff / Slide Review NO; Basophils Absolute Auto 0 /uL (0-100); Basophils Percent Auto 0.4 % (0-2); Eosinophils Absolute Auto 100 /uL (0-450); Eosinophils Percent Auto 0.9 % (2-4); Hematocrit 34.1 % (36-46); Hemoglobin 11.9 g/dL (12.0-16.0); Lymphocytes Absolute Auto 1400 /uL (1100-4500); Lymphocytes Percent Auto 16.9 % (25-40); Mean Corpuscular HGB Conc 34.8 % (30-36); Mean Corpuscular Hemoglobin 28.7 PG (26-34); Mean Corpuscular Volume 82.4 fL (80-100); Monocytes Absolute Auto 400 /uL (0-900); Monocytes Percent Auto 4.8 % (3-14); Neutrophils Absolute Auto 6300 /uL (1500-7000); Platelet Count 214 X10^3/uL (150-400); Red Blood Cell Count 4.14 X10^6/uL (4.0-5.2); Red Cell Distribution Width 13.8 % (11.6-14.8); White Blood Cell Count 8.1 X10^3/uL (4.5-11.0)
[2022-01-25 14:26] LABS: GTT (PREG) 1 Hour PP 50gm Dose 86 mg/dL (76-139)
[2022-01-25 16:23] LABS: Rubella Antibody IgG 12.6 IU/mL (>15)
[2022-01-25 16:28] LABS: Hepatitis B Surface Antigen NEGATIVE s/c (NEGATIVE)
[2022-01-25 17:13] LABS: Hep C Virus Ab w/Reflex Quant NEGATIVE s/c (NEGATIVE)
[2022-01-25 18:18] LABS: HIV 1 & 2 Ab/Ag 4th Gen Combo NEGATIVE (NEGATIVE)
[2022-01-26 10:53] LABS: Varicella IgG Antibody 572 index (Immune >165)
[2022-01-27 05:15] LABS: RPR Screen Non Reactive (Non Reactive)
== END ==
PROVIDERS: Family Provider Family Medicine; PCP Family Medicine; Referring Provider Family Medicine; Visit Provider Family Medicine
DX: O09.299 Supervision of pregnancy with other poor reproductive or obstetric history, unspecified trimester (principal); Z3A.15 15 weeks gestation of pregnancy; Z86.32 Personal history of gestational diabetes
CPT/HCPCS: 36415; 80055; 81003; 82950; 86787; 86803; 86850; 86900; 86901; 87086; 87389

== ENCOUNTER → 2022-03-16 15:17 | Outpatient (CLI) | payer SELFPAY ==
--- NOTE | 2022-03-16 15:18 | DI.US.S_ITS ---
PROCEDURE: US OB >= 14 WEEKS FETUS INDICATIONS: Anatomy US OUTSIDE/PRIOR DATING DATA: First dating scan (date and location): 12/28/2021. Estimated date of delivery (KIMBERLY) from first dating scan: 07/17/2022. The calculations are made using the ultrasound KIMBERLY of 07/17/2022. TECHNIQUE: Real-time scanning was performed of the fetus, with image documentation and biometric measurements. COMPARISON: [facility], OB <= 14 WEEKS FETUS, 12/28/2021, 15:48. [facility], US OB >= 14 WEEKS FETUS, 04/28/2020, 12:39. FINDINGS: General: A single living intrauterine gestation is present. Presentation: Variable. Placenta: Placental position is posterior , and low-lying with the inferior margin of the placenta 1.3 cm above the internal cervical os.. Amniotic fluid index: 12.1 cm, normal range is 5-24 cm. Single deepest vertical pocket is 4.0 cm. heart rate: 150 beats per minute. Maternal cervical canal: 5.4 cm long. Normal lower limit is 2.5 cm. biometrics: Biparietal diameter: 22 weeks Head circumference: 22 weeks Abdominal circumference: 22 weeks Femur length: 22 weeks Clinically estimated gestational age: 22 weeks 3 days Composite gestational age from present scan: 22 weeks 0 days Estimated weight and percentile: 467 g; 23rd percentile Anatomic survey: Neuro: Ventricles are non-dilated at less than 10 mm. Cisterna magna is normal at 3-11 mm. Cerebellum is normal in size and morphology. Nuchal skin fold: Prominent at 6.2 mm. Face: Not well seen. Spine: No evidence for spina bifida. Heart: Not well seen. Diaphragm: Diaphragm is intact. Stomach: Left-sided stomach is present. Kidneys: No hydronephrosis. Normal is less than 5 mm in 2nd trimester, less than 7 mm in 3rd trimester. Cord: 3-vessel cord has orthotopic insertion. Bladder: Normal in size. Extremities: All 4 extremities identified. Maternal left ovarian cyst measuring up to 3.9 cm. IMPRESSION: 1. Single living IUP redemonstrated and interval growth is normal. 2. Four-chamber heart, cardiac outflow tracts, and the face not well visualized secondary to positioning. 3. Nuchal fold is prominent at 6.2 mm. 4. Low-lying placenta and follow-up is recommended. 5. Maternal ovarian cyst measuring up to 3.9 cm. We strive to produce accurate, complete, and clear reports of imaging services. To assist us in improving patient care, this report was composed using standard report templates and voice recognition software. Therefore, it may contain abnormal punctuation, insertions and/or omissions. Occasional wrong-word or sound-alike substitutions may occur. Though we review the report and make efforts to correct it, we do recommend that the report be read carefully in proper context to recognize any text inaccuracies. Dictated by: Omar HOOD Interpreted: Avtar Hart MD on 03/16/2022 at 16:43 Transcribed by: LIZBETH on 03/16/2022 at 16:47 Approved by: Avtar Hart M.D. on 03/23/2022 at 14:54
== END ==
PROVIDERS: Family Provider Family Medicine; PCP Family Medicine; Referring Provider Family Medicine; Visit Provider Family Medicine
DX: Z34.92 Encounter for supervision of normal pregnancy, unspecified, second trimester (principal); Z3A.22 22 weeks gestation of pregnancy
CPT/HCPCS: 76811

== ENCOUNTER → 2022-04-21 06:43 | Outpatient (CLI) | payer OTHER, SELFPAY ==
--- NOTE | 2022-04-21 06:44 | DI.US.S_ITS ---
PROCEDURE: US OB FOLLOW UP INDICATIONS: incomplete view of heart, low lying placenta OUTSIDE/PRIOR DATING DATA: Last menstrual period (LMP): Unknown. First dating scan (date and location): 12/28/2021. Estimated date of delivery (KIMBERLY) from first dating scan: 07/17/2022. TECHNIQUE: Real-time scanning was performed of the fetus, with image documentation. Endovaginal scanning: Not performed COMPARISON: [facility], OB >= 14 WEEKS FETUS, 03/16/2022, 15:48. FINDINGS: A single living intrauterine gestation is present. Presentation: Oblique. Placenta: Placental position is posterior, without previa. Low lying placenta resolved. Amniotic fluid index: 14.5 cm, normal range is 5-24 cm. Single deepest vertical pocket is 6.0 cm. heart rate: 137 beats per minute. Maternal cervical canal: 5.1 cm long. Normal lower limit is 2.5 cm. estimated gestational age: 27 weeks 4 days face/lips/orbits, four-chamber cardiac view, right and left ventricular outflow tracts are visualized and within normal limits. IMPRESSION: 1. Single living intrauterine . 2. face/lips/orbits, four-chamber cardiac view, right and left ventricular outflow tracts are visualized and within normal limits. Dictated by: Norberto Lantigua M.D. on 04/21/2022 at 11:19 Approved by: Norberto Lantigua M.D. on 04/21/2022 at 11:29
== END ==
PROVIDERS: Family Provider Family Medicine; PCP Family Medicine; Referring Provider Family Medicine; Visit Provider Family Medicine
DX: Z36.2 Encounter for other antenatal screening follow-up (principal); Z3A.27 27 weeks gestation of pregnancy
CPT/HCPCS: 76816

== ENCOUNTER → 2022-04-24 13:53 | Outpatient (CLI) | payer OTHER, BC, SELFPAY ==
[2022-04-24 15:20] LABS: Influenza A - CEPHEID Flu A NEGATIVE (NEGATIVE); Influenza B - CEPHEID Flu B NEGATIVE (NEGATIVE); Respiratory Syncytial Virus Negative (Negative)
[2022-04-24 15:21] LABS: COVID-19 CEPHEID 4-PLEX PCR Negative (Negative)
== END ==
PROVIDERS: Family Provider Family Medicine; PCP Family Medicine; Visit Provider Physician Assistant
DX: R05.9 Cough, unspecified (principal)
CPT/HCPCS: 0241U

== ENCOUNTER → 2022-04-28 07:09 | Outpatient (CLI) | payer OTHER, BC, SELFPAY ==
[2022-04-28 09:06] LABS: Glucose Fasting 83 mg/dL (70-100)
[2022-04-28 10:36] LABS: Glucose Tol Interpretation INTERPRETATION
[2022-04-28 10:46] LABS: Glucose 2 Hour 133 mg/dL (70-140)
[2022-04-28 10:46] LABS: Glucose 1 Hour 170 mg/dL (70-170)
[2022-04-28 12:05] LABS: Glucose 3 Hour 115 mg/dL (70-115)
== END ==
PROVIDERS: Family Provider Family Medicine; PCP Family Medicine; Referring Provider Family Medicine; Visit Provider Family Medicine
DX: O09.299 Supervision of pregnancy with other poor reproductive or obstetric history, unspecified trimester (principal); Z86.32 Personal history of gestational diabetes; Z3A.00 Weeks of gestation of pregnancy not specified
CPT/HCPCS: 36415; 82951; 82952

== ENCOUNTER 2022-06-15 16:46 | Outpatient (CLI) | payer OTHER, BC, SELFPAY ==
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
== END 2022-06-15 17:45 | disposition home or self-care (01) ==
LOC: LABOR 17:45 → OB 06-17 10:03
PROVIDERS: Family Provider Family Medicine; PCP Family Medicine; Referring Provider Family Medicine; Visit Provider Family Medicine
DX: O24.415 Gestational diabetes mellitus in pregnancy, controlled by oral hypoglycemic drugs (principal); Z3A.35 35 weeks gestation of pregnancy
CPT/HCPCS: 59025; G0378; G0379

== ENCOUNTER 2022-06-18 16:50 | Outpatient (CLI) | payer OTHER, SELFPAY | END 2022-06-18 17:50 | disposition home or self-care (01) | LOC: LABOR 17:44 → OB 06-21 10:35 | PROVIDERS: Family Provider Family Medicine; PCP Family Medicine; Referring Provider Family Medicine; Visit Provider Family Medicine | DX: O24.415 Gestational diabetes mellitus in pregnancy, controlled by oral hypoglycemic drugs (principal); Z3A.35 35 weeks gestation of pregnancy | CPT/HCPCS: 59025; G0378; G0379 ==

== ENCOUNTER → 2022-06-21 06:50 | Outpatient (CLI) | payer OTHER, SELFPAY ==
--- NOTE | 2022-06-21 06:51 | DI.US.S_ITS ---
PROCEDURE: US OB LIMITED INDICATIONS: LARGE FOR GESTATIONAL AGE. GESTATIONAL DIABETES. OUTSIDE/PRIOR DATING DATA: Last menstrual period (LMP): Unknown LMP-based estimated date of delivery (KIMBERLY): NA First dating scan (date and location): 12/28/2021 Estimated date of delivery (KIMBERLY) from first dating scan: 07/17/2022 The calculations are made using the ultrasound KIMBERLY of 07/17/2022 TECHNIQUE: Real-time scanning was performed of the fetus, with image documentation and biometric measurements. Endovaginal scanning: Not performed COMPARISON: [facility], US, OB FOLLOW UP, 04/21/2022, 6:53. FINDINGS: General: A single living intrauterine gestation is present. Presentation: Vertex Placenta: Placental position is posterior. Amniotic fluid index: 15.1 cm, normal range is 5-24 cm. Single deepest vertical pocket is 5.8 cm. heart rate: 139 beats per minute. Maternal cervical canal: Not well visualized biometrics: Biparietal diameter: 9.4 cm, 38 weeks 3 days Head circumference: 34.7 cm, 40 weeks 1 day Abdominal circumference: 34.5 cm, 38 weeks 2 days Femur length: 7.0 cm, 35 weeks 5 days Clinically estimated gestational age: 36 weeks 2 days Composite gestational age from present scan: 38 weeks 1 day Estimated weight and percentile: 3350 grams, 90th percentile Other: Not applicable. IMPRESSION: 1. Single live intrauterine with interval growth. 2. Estimated weight is 3350 grams, 90th percentile for gestational age. 3. Amniotic fluid index is normal at 15.1 cm. We strive to produce accurate, complete, and clear reports of imaging services. To assist us in improving patient care, this report was composed using standard report templates and voice recognition software. Therefore, it may contain abnormal punctuation, insertions and/or omissions. Occasional wrong-word or sound-alike substitutions may occur. Though we review the report and make efforts to correct it, we do recommend that the report be read carefully in proper context to recognize any text inaccuracies. Approved by: Norberto Campoverde M.D. on 06/21/2022 at 7:49
== END ==
PROVIDERS: Family Provider Family Medicine; PCP Family Medicine; Referring Provider Family Medicine; Visit Provider Family Medicine
DX: Z36.2 Encounter for other antenatal screening follow-up (principal); O26.843 Uterine size-date discrepancy, third trimester; Z3A.38 38 weeks gestation of pregnancy
CPT/HCPCS: 76815; 87653

== ENCOUNTER → 2022-06-21 16:57 | Outpatient (CLI) | payer OTHER, SELFPAY ==
[2022-06-22 13:30] LABS: Strep Grp B PCR NEG for Grp B Strep
== END ==
PROVIDERS: Family Provider Family Medicine; PCP Family Medicine; Visit Provider Family Medicine
DX: Z36.85 Encounter for antenatal screening for Streptococcus B (principal)
CPT/HCPCS: 87653

== ENCOUNTER 2022-06-22 17:00 | Outpatient (CLI) | payer OTHER, SELFPAY | END 2022-06-22 17:37 | disposition home or self-care (01) | LOC: LABOR 17:26 → OB 06-25 13:51 | PROVIDERS: Family Provider Family Medicine; PCP Family Medicine; Referring Provider Family Medicine; Visit Provider Family Medicine | DX: O24.415 Gestational diabetes mellitus in pregnancy, controlled by oral hypoglycemic drugs (principal); O26.893 Other specified pregnancy related conditions, third trimester; R10.2 Pelvic and perineal pain; Z3A.36 36 weeks gestation of pregnancy | CPT/HCPCS: 59025; G0378; G0379 ==

== ENCOUNTER 2022-06-25 17:02 | Outpatient (CLI) | payer OTHER, SELFPAY ==
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
== END 2022-06-25 17:35 | disposition home or self-care (01) ==
LOC: OB 07-01 06:35
PROVIDERS: Family Provider Family Medicine; PCP Family Medicine; Referring Provider Family Medicine; Visit Provider Family Medicine
DX: O24.415 Gestational diabetes mellitus in pregnancy, controlled by oral hypoglycemic drugs (principal); Z3A.36 36 weeks gestation of pregnancy
CPT/HCPCS: 59025; G0378; G0379

== ENCOUNTER 2022-06-29 16:49 | Outpatient (CLI) | payer OTHER, SELFPAY ==
--- NOTE | 2022-06-29 17:44 | PM.PROC.1 ---
Procedures Date/Time Date of procedure: 06/29/22 Time of procedure: 17:44 General Procedure description: 32YO @ [id number] here for scheduled NST for GDMA2 (metformin) NST: baseline FHR 125bpm moderate variability accelerations presen decelerations absent Occasional mild contractions, not felt by patient A: Reactive NST P: Discharge to home and follow-up care and testing as previously scheduled
== END 2022-06-29 17:47 | disposition home or self-care (01) ==
LOC: LABOR 17:33 → OB 07-01 06:38
PROVIDERS: Family Provider Family Medicine; PCP Family Medicine; Referring Provider Family Medicine; Visit Provider Family Medicine
DX: O24.415 Gestational diabetes mellitus in pregnancy, controlled by oral hypoglycemic drugs (principal); Z3A.37 37 weeks gestation of pregnancy
CPT/HCPCS: 59025; G0378; G0379

== ENCOUNTER 2022-07-02 16:49 | Outpatient (CLI) | payer OTHER, SELFPAY ==
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
== END 2022-07-02 17:53 | disposition home or self-care (01) ==
LOC: OB 07-09 17:05
PROVIDERS: Family Provider Family Medicine; PCP Family Medicine; Referring Provider Family Medicine; Visit Provider Family Medicine
DX: O24.415 Gestational diabetes mellitus in pregnancy, controlled by oral hypoglycemic drugs (principal); Z3A.37 37 weeks gestation of pregnancy
CPT/HCPCS: 59025; G0378; G0379

== ENCOUNTER 2022-07-06 16:59 | Outpatient (CLI) | payer OTHER, SELFPAY ==
--- NOTE | 2022-07-06 17:05 | DI.US.S_ITS ---
PROCEDURE: US OB LIMITED INDICATIONS: GESTATIONAL DIABETES - AMNIOTIC FLUID INDEX OUTSIDE/PRIOR DATING DATA: Last menstrual period (LMP): Un known. LMP-based estimated date of delivery (KIMBERLY): Un known. First dating scan (date and location): 12/28/2021 Estimated date of delivery (KIMBERLY) from first dating scan: 07/17/2022. The calculations are made using the working KIMBERLY of 07/17/2022 TECHNIQUE: Real-time scanning was performed of the fetus, with image documentation. Endovaginal scanning: Not indicated COMPARISON: [facility], , OB LIMITED, 06/21/2022, 7:09. FINDINGS: General: A single living intrauterine gestation is present. Presentation: Vertex Placenta: Placental position is posterior, without previa. Amniotic fluid index: 17.1 cm, normal range is 5-24 cm. Single deepest vertical pocket is 6.7 cm. heart rate: 130 beats per minute. Maternal cervical canal: 3.5 cm long. Normal lower limit is 2.5 cm. Clinically estimated gestational age: Not applicable Estimated gestational age from initial scan: 38 weeks, 3 days. Four-chamber heart, stomach, bilateral kidneys and urinary bladder are visualized and are within normal limits. IMPRESSION: 1. Single live intrauterine gestation with fetus in vertex presentation. heart rate is 130 beats per minute. Normal amount of amniotic fluid. KARENA equals 17.1 cm. 2. Four-chamber heart is visualized on the current study and is within normal limits. We strive to produce accurate, complete, and clear reports of imaging services. To assist us in improving patient care, this report was composed using standard report templates and voice recognition software. Therefore, it may contain abnormal punctuation, insertions and/or omissions. Occasional wrong-word or sound-alike substitutions may occur. Though we review the report and make efforts to correct it, we do recommend that the report be read carefully in proper context to recognize any text inaccuracies. Dictated by: Chris Rosenthal M.D. on 07/06/2022 at 18:01 Approved by: Chris Rosenthal M.D. on 07/06/2022 at 18:03
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
== END 2022-07-06 18:05 | disposition home or self-care (01) ==
LOC: LABOR 17:15 → OB 09-29 06:56
PROVIDERS: Family Provider Family Medicine; PCP Family Medicine; Referring Provider Advanced Practice Midwife; Visit Provider Advanced Practice Midwife
DX: O24.415 Gestational diabetes mellitus in pregnancy, controlled by oral hypoglycemic drugs (principal); Z3A.38 38 weeks gestation of pregnancy
CPT/HCPCS: 59025; 76815; G0378; G0379

== ENCOUNTER 2022-07-09 16:53 | Outpatient (CLI) | payer OTHER, SELFPAY | END 2022-07-09 17:40 | disposition home or self-care (01) | LOC: LABOR 16:54 → OB 07-14 16:16 | PROVIDERS: Family Provider Family Medicine; PCP Family Medicine; Referring Provider Family Medicine; Visit Provider Family Medicine | DX: O36.8130 Decreased fetal movements, third trimester, not applicable or unspecified (principal); Z3A.38 38 weeks gestation of pregnancy | CPT/HCPCS: 59025; G0378; G0379 ==

== ENCOUNTER 2022-07-12 19:26 | Inpatient (IN) | payer OTHER, SELFPAY ==
[2022-07-12 19:49] VITALS: BP 110/65
[2022-07-12] MEDS: DINOPROSTONE VAG (CERVIDIL) 10 MG VAG (20:30)
[2022-07-12 20:35] LABS: Add Manual Diff / Slide Review NO; Basophils Absolute Auto 0 /uL (0-100); Basophils Percent Auto 0.2 % (0-2); Eosinophils Absolute Auto 100 /uL (0-450); Hematocrit 31.3 % (36-46); Hemoglobin 10.5 g/dL (12.0-16.0); Lymphocytes Absolute Auto 1600 /uL (1100-4500); Lymphocytes Percent Auto 21.7 % (25-40); Mean Corpuscular HGB Conc 33.5 % (30-36); Mean Corpuscular Hemoglobin 26.1 PG (26-34); Mean Corpuscular Volume 77.8 fL (80-100); Monocytes Absolute Auto 600 /uL (0-900); Monocytes Percent Auto 7.6 % (3-14); Neutrophils Absolute Auto 5200 /uL (1500-7000); Neutrophils Percent Auto 69.5 % (50-75); Platelet Count 214 X10^3/uL (150-400); Red Blood Cell Count 4.03 X10^6/uL (4.0-5.2); Red Cell Distribution Width 14.7 % (11.6-14.8); White Blood Cell Count 7.6 X10^3/uL (4.5-11.0)
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
[2022-07-12] MEDS: SERTRALINE 50 MG TABLET PO (21:14)
[2022-07-12] MEDS: ZOLPIDEM 5 MG TABLET PO (21:14)
--- NOTE | 2022-07-13 07:59 | PM.OBPNLAB ---
Date/Time Date Patient Seen: 07/13/22 Time Patient Seen: 07:59 Pain Control Pain control: tolerating well Pelvic Exam Effacement (%): 50 station: -3 Contractions Contractions on admission: none Monitor mode: External Contraction pattern: Regular Contraction intensity: Mild Status status: Category l Heart Rate Baseline: 130 Monitor Accelerations: Present Monitor Decelerations: Absent Monitor Variability: Moderate Assessment and Plan Assessment: induction ongoing Comments: Cervidil out at 0830 Will decide next step
[2022-07-13] MEDS: LACTATED RINGERS 1,000 ML 100 ML IV (09:35)
[2022-07-13] MEDS: OXYTOCIN PREMIX 30 UNIT/500 ML PLAST..BAG IV (09:36)
[2022-07-13] MEDS: SERTRALINE 50 MG TABLET PO (21:33)
[2022-07-13] MEDS: ZOLPIDEM 5 MG TABLET PO (21:33)
[2022-07-14] MEDS: miSOPROStoL 100 MCG TABLET 25 MCG VAG ×2 (00:37→04:56)
[2022-07-14] MEDS: CALCIUM CARBONATE 500 MG TAB 1000 MG PO (00:45)
[2022-07-14] MEDS: OXYTOCIN PREMIX 30 UNIT/500 ML PLAST..BAG IV (09:44)
[2022-07-14] MEDS: LACTATED RINGERS 1,000 ML 100 ML IV (14:25)
[2022-07-14] MEDS: FENT 2MCG/ML BUPIV 0.125% EPI 200 MCG/100 ML PLAST..BAG 6 MCG EPIDURAL (14:30)
[2022-07-14] MEDS: diphenhydrAMINE 50 MG/ML VIAL 25 MG IV (15:05)
--- NOTE | 2022-07-14 18:22 | PM.OBPNLAB ---
Date/Time Date Patient Seen: 07/13/22 Time Patient Seen: 17:33 Pain Control Pain control: tolerating well Pelvic Exam Effacement (%): 50 station: -3 Amniotic membrane status: Intact Contractions Contractions on admission: none Monitor mode: External Pitocin rate (mU/min): 14 Contraction frequency (min): 4 Contraction duration (min): 1 Contraction pattern: Regular Contraction intensity: Moderate Status status: Category l Heart Rate Baseline: 125 Monitor Accelerations: Present Monitor Decelerations: Absent Monitor Variability: Moderate Assessment and Plan Assessment: induction ongoing Comments: Stop Pitocin at 8pm if no significant change Misoprostol overnight if able Reassess in am
--- NOTE | 2022-07-14 18:24 | PM.OBPNLAB ---
Date/Time Date Patient Seen: 07/14/22 Time Patient Seen: 08:25 Pain Control Pain control: tolerating well Comments: Received 2 doses of Misoprostol overnight. Feeling some contractions Pelvic Exam Effacement (%): 50 station: -3 Amniotic membrane status: Intact Contractions Contractions on admission: none Monitor mode: External Pitocin rate (mU/min): 0 Contraction frequency (min): 7 Contraction duration (min): 1 Contraction pattern: Regular Contraction intensity: Mild Status status: Category l Heart Rate Baseline: 125 Monitor Accelerations: Present Monitor Decelerations: Absent Monitor Variability: Moderate Assessment and Plan Assessment: induction ongoing Comments: Recheck cervix at 0900 AROM if able Epidural as needed
--- NOTE | 2022-07-14 18:30 | PM.OBPNLAB ---
Date/Time Date Patient Seen: 07/14/22 Time Patient Seen: 11:00 Pain Control Pain control: tolerating well Pelvic Exam Dilation (cm): 3 Effacement (%): 75 station: -2 Amniotic membrane status: Intact Contractions Contractions on admission: none Monitor mode: External Pitocin rate (mU/min): 8 Contraction frequency (min): 3 Contraction pattern: Regular Contraction intensity: Moderate Status status: Category l Heart Rate Baseline: 135 Monitor Accelerations: Present Monitor Decelerations: Absent Monitor Variability: Moderate Assessment and Plan Assessment: induction ongoing Comments: Attempted AROM [place] Epidural as needed
--- NOTE | 2022-07-14 18:33 | PM.OBPRVD ---
Events: Gestational Diabetes (on Metformin) and Labor Induction Labor & Delivery Delivery date: 07/14/22 Intrapartal Events: Prolonged Latent Phase Cervical ripening method: per misoprostal protocol Induction method: per pitocin protocol Delivery augmentation: rupture of membranes Delivery monitor: external FHT and external uterine Route of delivery: Episiotomy description: None L&D Laceration Description: Perineal - 2nd Degree and Vaginal - 2nd Degree Delivery repair: vicryl and chromic Quantitative Blood Loss: 500 Anesthesia Type: Epidural Complications: Bloody amniotic fluid Narrative: Patient had blood-tinged amniotic fluid throughout active labor. She got to complete dilation and pushed for 30 minutes. At 5:47 p.m., a live female infant delivered spontaneously in the BAKARI presentation, over an intact perineum. The body delivered at 5:48 p.m.. Due to vaginal bleeding, the cord was double clamped and cut. Pitocin was given in the IV fluids. The placenta delivered intact with a three-vessel cord at 5:52 p.m.. A second-degree vaginal/perineal laceration was repaired in the usual fashion. QBL 500 cc. Apgars 8 at 1 minute and 9 at 5 minutes. Epidural analgesia. . weight 9 lb 7 oz. Mom and stable to recovery. [place] Baby 1: Infant gender: Female Presentation: vertex Position: Left Occiput Anterior Placenta delivery description: Spontaneous Cord Vessel Description: 3 Vessels and Clamped/Cut score (1 min): 8 score (5 min): 9 weight: 9 lb 7 oz Plan for aftercare: Routine care
[2022-07-14] MEDS: KETOROLAC 30 MG/ML VIAL IV (19:12)
[2022-07-15] MEDS: KETOROLAC 30 MG/ML VIAL IV ×3 (01:02→14:07)
[2022-07-15 06:12] LABS: Hematocrit 26.2 % (36-46); Hemoglobin 8.7 g/dL (12.0-16.0)
[2022-07-15] MEDS: DERMOPLAST SPRAY 20% 60 ML 1 SPRAY TOP (06:46)
[2022-07-15] MEDS: LANOLIN OINT 7 GM 1 APPLIC TOP (06:46)
[2022-07-15] MEDS: DOCUSATE 100 MG CAPSULE PO (09:01)
[2022-07-15] MEDS: SERTRALINE 50 MG TABLET PO (09:01)
[2022-07-15] MEDS: ACETAMINOPHEN 325 MG TABLET 650 MG PO ×2 (09:01→15:31)
[2022-07-15] MEDS: PRENATAL VIT,CALC/IRON/FOLIC 1 TABLET 1 TAB PO (09:02)
[2022-07-15] MEDS: MEASLES,MUMPS,RUBELLA VACC/PF 0.5 ML VIAL SUBCUT (15:33)
[2022-07-15] MEDS: RHO(D) IMMUNE GLOBULIN 1,500 UNIT SYRINGE 1500 UNIT IM (15:36)
--- NOTE | 2022-07-25 14:30 | PM.OBDS.1 ---
Discharge Providers Provider Date of admission: 07/12/22 19:26 Discharge Date: 07/15/22 Primary care physician: Danielle Herrera MD Consults: Anesthesia Discharge provider: Flavia Tse MD Summary Hospital Course Date Patient Seen: 07/15/22 Time Patient Seen: 08:30 Diagnoses: 39-2/7 weeks gestation Gestational diabetes, on metformin Cervical ripening with Cervidil and misoprostol Pitocin augmentation of labor Artificial rupture of membranes Epidural analgesia Spontaneous vaginal delivery Second-degree vaginal/perineal laceration tear Hospital Course: Patient is a 32-year-old 3 para 3 who presented on July 12, 2022 for Cervidil cervical ripening. She received 1 Cervidil. On the morning of July 13, 2022, she was started on Pitocin. This continued until evening. There was no cervical change. The Pitocin was stopped. She received misoprostol overnight. On the morning of July 14, 2022 she was started on Pitocin. Artificial rupture of membranes was performed. She had a spontaneous vaginal delivery on July 14, 2022 without complication. She had a second-degree vaginal/perineal laceration which was repaired. Her course was unremarkable. She was discharged home on July 15, 2022. was going well. Bleeding was tapering. Peripartum Data Infant Delivery Method: Natural Vaginal Laceration Description: Periurethral - 2nd Degree and Vaginal - 2nd Degree Episiotomy description: None Procedures: Cervidil cervical ripening Misoprostol cervical ripening Pitocin induction of labor Artificial rupture membranes Epidural analgesia Spontaneous vaginal delivery Second-degree perineal/vaginal laceration repair complications: none [place] 1: Gender: Female Disposition of : home Status at Discharge Cognitive/behavioral status at discharge: oriented Functional status at discharge: independent ambulation Overall status at discharge: patient is progressing back to baseline Time Spent with Patient Time attestation: Total time spent providing and/or coordinating discharge services: Time spent: Less than 30 minutes Objective Labs 07/15/22 06:02 Exam Narrative Exam Narrative: Generally: Patient is sitting up in bed, nursing , no acute distress Fundus: Firm at U -1 Extremities: Trace edema, negative Homans Discharge Plan Discharge Plan Patient Disposition: Home Provider Discharge Comment: Call with fever, chills, or bleeding vaginally more than a pad in an hour Ibuprofen 600 mg every 6 hours as needed for cramping Tylenol 650 mg every 6 hours as needed for pain Stool softeners as needed Push oral fluids Discharge orders & Medications Prescriptions: Continued sertraline 25 mg tablet 50 mg PO DAILY Qty: 180 3RF prenat.vits,anna,oih-fvjw-omxvm Tablet 1 tab PO DAILY Discontinued metformin 500 mg tablet 1,000 mg PO BID Rx Instructions: Take 500mg once daily for 3 days. Then take 500 mg twice daily for three days. Then take 1000mg (2 tabs) twice daily. No Action (DME) lancet See Rx Instructions .Route .MEDSUPPLY Qty: 100 3RF Rx Instructions: to test blood glucose 4-5 times daily (DME) OneTouch Verio test strips Strip See Rx Instructions .ROUTE .MEDSUPPLY Qty: 120 1RF Rx Instructions: use to test 4 times daily Follow up/Referrals: Danielle Herrera MD [Primary Care Provider] - ( appt w/ Dr. Herrera on August 27 @ 3:30pm) Diet/Activity/Treatments Diet: Regular Activity: Nothing in the vagina for 6 weeks Skin/Wound/Dressing Care Report to your healthcare provider any signs of infection, such as:: chills, fever, increased pain and unusual drainage Visit Report/Discharge Packet Instructions: DI for Labor and Delivery, Vaginal , DI for Depression Stand Alone Forms: Discharge: Care, Patient Portal/API, Stroke Signs & Symptoms Discharge Data Primary Care Provider: Danielle Herrera
== END 2022-07-15 18:00 | disposition home or self-care (01) | DRG 807 ==
PROVIDERS: Admitting Provider Obstetrics & Gynecology; Family Provider Family Medicine; PCP Family Medicine; Referring Provider Obstetrics & Gynecology; Visit Provider Obstetrics & Gynecology
DX: O24.425 Gestational diabetes mellitus in childbirth, controlled by oral hypoglycemic drugs (principal); Z37.0 Single live birth; O99.344 Other mental disorders complicating childbirth; F32.A Depression, unspecified; Z3A.39 39 weeks gestation of pregnancy; O70.1 Second degree perineal laceration during delivery; O63.0 Prolonged first stage (of labor)
CPT/HCPCS: 36415; 59050; 59200; 59400; 59409; 85014; 85018; 85025; 85461; 86850; 86870; 86900; 86901; G0379; J1200; J1885; J2590; J2790

== ENCOUNTER → 2022-12-28 15:04 | Outpatient (CLI) | payer OTHER, SELFPAY ==
--- NOTE | 2022-12-28 15:05 | DI.RAD.S_ITS ---
PROCEDURE: XR CERVICAL SPINE 2V OR 3V INDICATIONS: c-spine pain TECHNIQUE: 3 view(s) of the cervical spine were acquired. COMPARISON: None. FINDINGS: Bones: Straightening of normal cervical lordosis. No acute vertebral body height loss or traumatic subluxation. Normal C1 on C2 alignment on odontoid view. Minimal osteophytes and disc space height loss, for example at C5-C6. Soft tissues: No pathologic prevertebral soft tissue swelling. IMPRESSION: Minimal degenerative changes. No acute radiographic abnormality. If there is high concern for further derangement, consider MRI evaluation. Dictated by: Aaron Ruff M.D. on 12/28/2022 at 15:50 Approved by: Aaron Ruff M.D. on 12/28/2022 at 15:51
== END ==
PROVIDERS: Family Provider Family Medicine; PCP Family Medicine; Referring Provider Physician Assistant; Visit Provider Physician Assistant
DX: M54.2 Cervicalgia (principal)
CPT/HCPCS: 72040

== ENCOUNTER → 2023-04-20 07:00 | Outpatient (CLI) | payer OTHER, SELFPAY ==
--- NOTE | 2023-04-20 07:02 | DI.RAD.S_ITS ---
PROCEDURE: XR SACRUM COCCYX MIN 2V INDICATIONS: Fall on outstretched hand TECHNIQUE: 3 views of the sacrum and coccyx acquired. COMPARISON: None. FINDINGS: Bones: No fractures or dislocations. No suspicious bony lesions. Soft tissues: Visualized bowel gas pattern is normal. No suspicious soft tissue densities. IMPRESSION: Normal sacrum and coccyx. Dictated by: Claude Spann M.D. on 04/20/2023 at 9:31 Approved by: Claude Spann M.D. on 04/20/2023 at 9:31
--- NOTE | 2023-04-20 07:02 | DI.RAD.S_ITS ---
PROCEDURE: XR HAND LT MIN 3V INDICATIONS: Fall on outstretched hand TECHNIQUE: 3 views of the hand(s) acquired. COMPARISON: None. FINDINGS: Bones: No fractures or dislocations. Carpal bones are normally aligned. No suspicious bony lesions. Soft tissues: No suspicious soft tissue calcifications. IMPRESSION: No acute bony abnormality. Dictated by: Claude Spann M.D. on 04/20/2023 at 9:30 Approved by: Claude Spann M.D. on 04/20/2023 at 9:31
== END ==
PROVIDERS: Family Provider Family Medicine; PCP Family Medicine; Referring Provider Physician Assistant; Visit Provider Physician Assistant
DX: T14.8XXA Other injury of unspecified body region, initial encounter (principal); M53.3 Sacrococcygeal disorders, not elsewhere classified; W19.XXXA Unspecified fall, initial encounter
CPT/HCPCS: 72220; 73130

== ENCOUNTER → 2024-05-16 07:45 | Outpatient (CLI) | payer OTHER, SELFPAY | PROVIDERS: Family Provider Family Medicine; PCP Family Medicine; Referring Provider Nurse Practitioner Family; Visit Provider Nurse Practitioner Family | DX: R30.0 Dysuria (principal); N89.8 Other specified noninflammatory disorders of vagina | CPT/HCPCS: 87077; 87086; 87210 ==

== ENCOUNTER → 2024-07-09 14:23 | Outpatient (CLI) | payer OTHER, SELFPAY | PROVIDERS: Family Provider Family Medicine; PCP Family Medicine; Visit Provider Family Medicine | DX: N89.8 Other specified noninflammatory disorders of vagina (principal); N39.0 Urinary tract infection, site not specified | CPT/HCPCS: 87086; 87210 ==

== ENCOUNTER 2024-09-12 07:30 | Outpatient (RCR) | payer OTHER, SELFPAY ==
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
--- NOTE | 2024-08-01 13:15 | PT.OPPOC ---
Physical, Occupational & Speech Therapy At [facility] Current Diagnoses Stress incontinence (female) (male) (08/01/24) Pelvic muscle wasting (08/01/24) Visit Care Team Role Provider Type Danielle Herrera MD Attending Provider Physician Family Provider Primary Care Provider Referring Provider Specialty: Family Practice Address: [address] [place] [address], [facility] Email: [email or web address] Plan Of Care PT-OP-B Current Condition Start: 07/31/24 17:18 Freq: Status: Active Protocol: Document 08/01/24 09:48 [facility] (Rec: 08/01/24 10:45 [facility] [id number]) Current Condition History of Current Condition Current Complaints jul 14 2022 last delivery History of Current Condition primary symptoms of stress incontinence that started after her first delivery, she has 3 kids are all 3 years apart. SHe has leaking with coughing sneeze, running. IT varies in amount and she can went through her under wear, on occasion when going to the bathroom she can stand up and will leak. After her third baby she noted that she had decreased sensation that she needs to go. She has had 6-7 UTI's in the last 10 years pt notes she feels that the and labia can feel heavy and swollen and uncomfortable She notes when she uses a tampon during her peried she feels she has less urine. on occasion she will feel urgency PT-OP-T Assessment and Plan Start: 07/31/24 17:18 Freq: Status: Active Protocol: Document 08/01/24 09:48 [facility] (Rec: 08/01/24 10:45 [facility] [id number]) Physical Therapy Assessment Rehab Potential Rehabilitation Potential Excellent Evaluation Complexity Number of Personal Factors/Comorbidities 0 Number of Body Systems Impaired 1-2 Clinical Presentation at Evaluation Stable Impairments Impairments Activity Tolerance,Functional Activities,Soft Tissue Mobility,Strength,Tone Other Impairments urinary stress incontinence Goals 3 Impairment Pelvic floor muscle guarding and tension of the left>right levator ani making it difficult to fully relax the pelvic floor during contractions Nursing Home Goal (LTG) Krysta presents with improved ability to fully relax her pelvic floor at rest to improve full bladder emptying and decrease incontinence LTG Duration 8 weeks 2 Impairment Decreased pelvic floor strength and endurance Short Term Goal (STG) Krysta is able to sustain a pelvic floor contraction in supine x 10 seconds STG Duration 5 weeks Jig Boring Machine Set Up Operator Goal (LTG) Krysta is able to sustain a pelvic floor contraction in standing x 10 seconds LTG Duration 8 weeks 1 Impairment urinary stress incontinence leaking 1-2 times per day Jig Boring Machine Set Up Operator Goal (LTG) Krysta reports a overall reduction of stress incontinence symptoms and is no longer leaking daily LTG Duration 8 weeks+ Assessment Summary Assessment Krysta is a 34 year female referred to PT with chief complaints of urinary stress incontinence. She report that after having her third baby she is noticing a increase in urinary leakage with jumping, running, laughing. She will leak 1-2 times per day and the leakage can vary from a little bit to leaking through her under [place]. She does note that when she is on her peroid and using a tampon that the leakage seems less. I did educate her poise impressas bladder supports as well as the use of a pessary that both may be helpful for her as well as pelvic floor strengthening. With evaluation Krysta presents with residual scar tissue at the perineum. There is no visible perineal lift from the perienum. For the levator ani she tests 1/5 MMT for the anterior and posterior wall and 2/5 MMT for the lateral pelvic morataya. There is a good amount of pelvic floor guarding on the left lateral wall, some tightness on the right lateral wall. She presents with decreased endurance of her pelvic floor and fatigues quickly with 5 second hold time for contractions. Krysta reports she does not have the sensation of pelvic floor contraction. Krysta does have a history of UTI's and she does note that she often does not drink enough water. We discussed increasing fluid intake and decreasing bladder irritants to help decrease bladder irritation and incontinence. She is a good candidate for pelvic floor PT Physical Therapy Plan Frequency and Duration Frequency of Treatment 1x/Week Duration of treatment (weeks) 8 Plan of Care Start Date 08/01/24 Plan of Care End Date 09/26/24 Therapeutic Interventions Therapeutic Interventions Neuromuscular Re-education, Patient/Caregiver Education, Self-Care/Home Management,Soft Tissue Mobilization, Therapeutic Exercises Modalities Biofeedback,Electric Stimulation Other Therapeutic Interventions pt may benefit from NMES for the pelvic floor Next Visit Focus/Plan Next Note Type Treatment Note Next Visit Plan assess hip mobility and tightness throughout the hips, adding in stretches to help with pelvic floor relaxation, begin pelvic floor endurance training and NMES for the pelvic floor Plan of Care Dates Plan of Care Start Date 08/01/24 Plan of Care End Date 09/26/24 Electronically Signed by: Yadira Morejon, PT 08/01/24 [id number] If you are in agreement with this Plan of Care, please return a signed and dated copy. I have reviewed this Plan of Care and certify that the skilled therapy services above are required to meet the patient?s needs. Physician Signature Date Printed Name and Credentials Clinical Instructor Signature Printed Name and Credentials
--- NOTE | 2024-08-09 10:12 | PT-IP ANOTE ---
pt DNS for appt. I called and left a message on her voice mail regarding her missed appt, our no show policy as well as her next visit date and time
--- NOTE | 2024-08-15 09:09 | PT.OTN ---
Current Diagnoses Stress incontinence (female) (male) (08/15/24) Pelvic muscle wasting (08/15/24) Physical Therapy Treatment Note PT-OP-A Visit Information Start: 07/31/24 17:18 Freq: Status: Active Protocol: Document 08/15/24 08:13 [facility] (Rec: 08/15/24 08:50 [facility] [id number]) Out-Patient Physical Therapy Visit Information Visit Information Visit Type Treatment Note Visit Start Time 08:15 Visit Stop Time 09:00 Visit Number 2 PT-OP-B Current Condition Start: 07/31/24 17:18 Freq: Status: Active Protocol: Document 08/01/24 09:48 [facility] (Rec: 08/01/24 10:45 [facility] [id number]) Current Condition History of Current Condition Current Complaints jul 14 2022 last delivery History of Current Condition primary symptoms of stress incontinence that statred after her first delivery, he 3 kids are all 3 years apart. SHe has leaking with coughing sneeze, running. IT varies in amount and she can went through her under wear, on occasion when going to the bathroom she can stand up and will leak. After her third baby she noted that she had decreased sensation that she needs to go. She has had 6-7 UTI's in the last 10 years pt notes she feels that the and labia can feel heavy and swollen and uncomfortable She notes when she uses a tampon during her peried she feels she has less urine. on occasion she will feel urgency PT-OP-C Subjective Start: 07/31/24 17:18 Freq: Status: Active Protocol: Document 08/15/24 08:13 [facility] (Rec: 08/15/24 08:50 [facility] [id number]) OP-PT Subjective Patient Comments Patient Comments the exercises are difficult as she has three kids laying on her when she trys to do her exercises. She has been trying them some in bed and does feel more aware. she is noticing her water intake vs caffiene and can tell she will leak more when she is dehydrated. PT-OP-I Pelvic Floor Start: 07/31/24 17:18 Freq: Status: Active Protocol: Document 08/01/24 09:48 [facility] (Rec: 08/01/24 10:45 [facility] [id number]) Pelvic Floor Assessment Urine Pelvic Floor Surgery No Other Urinary Symptoms urinary stress incontinence Leakage Size Medium Other Leakage Causes leakage can vary from a little to wetting through her underware Leaks Per Day 1-2 Voiding Frequency 4 times during the day Nocturia 1 Pelvic Clock Pelvic Clock 3-6 Guarding,Tightness Pelvic Clock 6-9 Tightness Pelvic Clock Other left greater than right wall guarding and tightness Perineal Descent Resting Present Contraction Ability Voluntary Contraction Weak Voluntary Relaxation Weak Manual Muscle Testing Left 2 Manual Muscle Testing Right 2 Manual Muscle Testing Anterior 1 Manual Muscle Testing Posterior 1 Muscle Endurance (Seconds) 5 Comments Pelvic Floor Comments pt is currently not able to pull up from the perieum, she has tenderness over the perineum and scar tissue is present making it difficult to activate the external pelvic floor muscles she presents with guarding left greater than right in the levator ani PT-OP-Q Treatments Start: 07/31/24 17:18 Freq: Status: Active Protocol: Document 08/15/24 08:13 [facility] (Rec: 08/15/24 08:50 [facility] [id number]) Therapeutic Exercises Supine Exercises pelvic floor long holds Supine Exercise Name 3.5 initial resting tone Reps/Minutes 10 reps holding 10 seconds Comments verage 6.2 and 13.5 max pelvic floor assist with ball squeeze Reps/Minutes up to 5 sec hold and 10 sec rest Comments average 7.0 12.9 Neuro Re-Education Treatment Other Activities NMES for the pelvic floor Comments vaginal sensor was used and pt could feel sensation at level 6, she could feel this posteriorly and it felt like it was at where her scar tissue was at. If she contracts she can feel it all around the pelvic clock better . Self-Care/Home Management Treatment Education Patient Education Home Exercise Program Other Education reviewed bladder irritants and importance of increasing water intake, pt was edcated on fully relaxing her pelvic floor for fully being able to void PT-OP-T Assessment and Plan Start: 07/31/24 17:18 Freq: Status: Active Protocol: Document 08/15/24 08:13 [facility] (Rec: 08/15/24 08:50 [facility] [id number]) Physical Therapy Assessment Goals 3 Impairment Pelvic floor muscle guarding and tension of the left>right levator ani making it difficult to fully relax the pelvic floor during contractions Quarantine Inspector Goal (LTG) Krysta presents with improved ability to fully relax her pelvic floor at rest to improve full bladder emptying and decrease incontinence LTG Duration 8 weeks 2 Impairment Decreased pelvic floor strength and endurance Short Term Goal (STG) Krysta is able to sustain a pelvic floor contraction in supine x 10 seconds STG Duration 5 weeks Prison Goal (LTG) Oj is able to sustain a pelvic floor contraction in standing x 10 seconds LTG Duration 8 weeks 1 Impairment urinary stress incontinence leaking 1-2 times per day Quarantine Inspector Goal (LTG) Krysta reports a overall reduction of stress incontinence symptoms and is no longer leaking daily LTG Duration 8 weeks+ Assessment Summary Assessment Krysta did better today with her ability to relax her pelvic floor. She got as low asd 2 uv. SHe was able to complete 10 pelvic floor contractions on her own today and her resting tone got lower as she progressed. I started Krysta on NMES today and she could feel this primarily in the rectal region and over the scar tissue. We will work on ultrasound and scar tissue mobilization next visit as she did tear into the perineum and presents with decreased lift of the perineum Physical Therapy Plan Frequency and Duration Frequency of Treatment 1x/Week Duration of treatment (weeks) 8 Plan of Care Start Date 08/01/24 Plan of Care End Date 09/26/24 Therapeutic Interventions Therapeutic Interventions Neuromuscular Re-education, Patient/Caregiver Education, Self-Care/Home Management,Soft Tissue Mobilization, Therapeutic Exercises Modalities Biofeedback,Electric Stimulation Other Therapeutic Interventions pt may benefit from NMES for the pelvic floor Next Visit Focus/Plan Next Note Type Treatment Note Next Visit Plan trial of ultrasound to the perineum and scar tissue massage next visit prior to exercise as Krysta could feel NMES at the scar tissue region chelle
--- NOTE | 2024-08-22 12:24 | PT.OTN ---
Current Diagnoses Stress incontinence (female) (male) (08/22/24) Pelvic muscle wasting (08/22/24) Physical Therapy Treatment Note PT-OP-A Visit Information Start: 07/31/24 17:18 Freq: Status: Active Protocol: Document 08/22/24 09:00 [facility] (Rec: 08/22/24 09:11 [facility] [id number]) Out-Patient Physical Therapy Visit Information Visit Information Visit Type Treatment Note Visit Start Time 09:00 Visit Stop Time 09:45 Visit Number 3 PT-OP-B Current Condition Start: 07/31/24 17:18 Freq: Status: Active Protocol: Document 08/01/24 09:48 [facility] (Rec: 08/01/24 10:45 [facility] [id number]) Current Condition History of Current Condition Current Complaints jul 14 2022 last delivery History of Current Condition primary symptoms of stress incontinence that statred after her first delivery, he 3 kids are all 3 years apart. SHe has leaking with coughing sneeze, running. IT varies in amount and she can went through her under wear, on occasion when going to the bathroom she can stand up and will leak. After her third baby she noted that she had decreased sensation that she needs to go. She has had 6-7 UTI's in the last 10 years pt notes she feels that the and labia can feel heavy and swollen and uncomfortable She notes when she uses a tampon during her peried she feels she has less urine. on occasion she will feel urgency PT-OP-C Subjective Start: 07/31/24 17:18 Freq: Status: Active Protocol: Document 08/22/24 09:00 [facility] (Rec: 08/22/24 09:11 [facility] [id number]) OP-PT Subjective Patient Comments Patient Comments able to get in her exerises a couple times now and it is getting easier, pt reports she was traveling and did have more caffiene and notes it does make a difference with her bladder symptoms PT-OP-I Pelvic Floor Start: 07/31/24 17:18 Freq: Status: Active Protocol: Document 08/01/24 09:48 [facility] (Rec: 08/01/24 10:45 [facility] [id number]) Pelvic Floor Assessment Urine Pelvic Floor Surgery No Other Urinary Symptoms urinary stress incontinence Leakage Size Medium Other Leakage Causes leakage can vary from a little to wetting through her underware Leaks Per Day 1-2 Voiding Frequency 4 times during the day Nocturia 1 Pelvic Clock Pelvic Clock 3-6 Guarding,Tightness Pelvic Clock 6-9 Tightness Pelvic Clock Other left greater than right wall guarding and tightness Perineal Descent Resting Present Contraction Ability Voluntary Contraction Weak Voluntary Relaxation Weak Manual Muscle Testing Left 2 Manual Muscle Testing Right 2 Manual Muscle Testing Anterior 1 Manual Muscle Testing Posterior 1 Muscle Endurance (Seconds) 5 Comments Pelvic Floor Comments pt is currently not able to pull up from the perieum, she has tenderness over the perineum and scar tissue is present making it difficult to activate the external pelvic floor muscles she presents with guarding left greater than right in the levator ani PT-OP-Q Treatments Start: 07/31/24 17:18 Freq: Status: Active Protocol: Document 08/22/24 09:00 [facility] (Rec: 08/22/24 09:26 [facility] [id number]) Therapeutic Exercises Supine Exercises pelvic floor long holds Supine Exercise Name 2.0 resting tone Reps/Minutes 10 reps holding 10 seconds Comments 4.8 and 10.5 uv pelvic floor assist with ball squeeze Reps/Minutes up to 5 sec hold and 10 sec rest Comments average 7.0 12.9 modified squat stretch in supine Reps/Minutes pt to hold as tolerated 1-3 minutes with Comments cues to relax the pelvic floor Neuro Re-Education Treatment Other Activities NMES for the pelvic floor Comments pt went to level 9 she could feel it more in the front today, we did do the ultrasound first and mobilized the tissue at the perineum and she was not feeling the sensation around the scar tissue today she could feel more on the left wall too PT-OP-R Modalities Start: 08/22/24 09:12 Freq: Status: Active Protocol: Document 08/22/24 09:00 [facility] (Rec: 08/22/24 09:36 [facility] [id number]) Ultrasound Therapy Treatment ultrasound at the perineum and left tranverse perineum Patient Position Supine Coupling Medium Ultrasound Gel Applicator Size (cm2) 2 Frequency Setting (mHz) 1 Mode Setting Continuous Duty Cycle 100% Intensity Setting (w/cm2) 1.5 Comments left sided transverse perineum tightness and restrictions along with tightness at the perineum, Krysta tolerated this well today PT-OP-T Assessment and Plan Start: 07/31/24 17:18 Freq: Status: Active Protocol: Document 08/22/24 09:00 [facility] (Rec: 08/22/24 09:11 [facility] [id number]) Physical Therapy Assessment Rehab Potential Rehabilitation Potential Excellent Goals 3 Impairment Pelvic floor muscle guarding and tension of the left>right levator ani making it difficult to fully relax the pelvic floor during contractions Ophthalmic Medical Assistant Goal (LTG) Krysta presents with improved ability to fully relax her pelvic floor at rest to improve full bladder emptying and decrease incontinence LTG Duration 8 weeks 2 Impairment Decreased pelvic floor strength and endurance Short Term Goal (STG) Krysta is able to sustain a pelvic floor contraction in supine x 10 seconds STG Duration 5 weeks Ophthalmic Medical Assistant Goal (LTG) Oj is able to sustain a pelvic floor contraction in standing x 10 seconds LTG Duration 8 weeks 1 Impairment urinary stress incontinence leaking 1-2 times per day Ophthalmic Medical Assistant Goal (LTG) Krysta reports a overall reduction of stress incontinence symptoms and is no longer leaking daily LTG Duration 8 weeks+ Assessment Summary Assessment I started ultrasound over the perineum today and then we did the NMES for her pelvic floor and Krysta did not note the same pulling from the scar tissue as she did last visit. She also had improved sensation so I think the ultrasound was helpful. She would benefit from continued endurance training as she is still limited with pelvic floor endurance Physical Therapy Plan Frequency and Duration Frequency of Treatment 1x/Week Duration of treatment (weeks) 8 Plan of Care Start Date 08/01/24 Plan of Care End Date 09/26/24 Therapeutic Interventions Therapeutic Interventions Neuromuscular Re-education, Patient/Caregiver Education, Self-Care/Home Management,Soft Tissue Mobilization, Therapeutic Exercises Modalities Biofeedback,Electric Stimulation Other Therapeutic Interventions pt may benefit from NMES for the pelvic floor Next Visit Focus/Plan Next Note Type Treatment Note Next Visit Plan continue with ultrasound over the perineum and NMES as well as pelvic floor endurance training, review stretches for the pelvic floor that may help krysta reduce tension from the transverse perineum
--- NOTE | 2024-08-29 13:05 | PT.OTN ---
Current Diagnoses Stress incontinence (female) (male) (08/29/24) Pelvic muscle wasting (08/29/24) Physical Therapy Treatment Note PT-OP-A Visit Information Start: 07/31/24 17:18 Freq: Status: Active Protocol: Document 08/29/24 09:45 [facility] (Rec: 08/29/24 12:57 [facility] [id number]) Out-Patient Physical Therapy Visit Information Visit Information Visit Type Treatment Note Visit Start Time 09:45 Visit Stop Time 10:30 Visit Number 4 Evaluation Information Evaluation Date 08/01/24 PT-OP-B Current Condition Start: 07/31/24 17:18 Freq: Status: Active Protocol: Document 08/01/24 09:48 [facility] (Rec: 08/01/24 10:45 [facility] [id number]) Current Condition History of Current Condition Current Complaints jul 14 2022 last delivery History of Current Condition primary symptoms of stress incontinence that statred after her first delivery, he 3 kids are all 3 years apart. SHe has leaking with coughing sneeze, running. IT varies in amount and she can went through her under wear, on occasion when going to the bathroom she can stand up and will leak. After her third baby she noted that she had decreased sensation that she needs to go. She has had 6-7 UTI's in the last 10 years pt notes she feels that the and labia can feel heavy and swollen and uncomfortable She notes when she uses a tampon during her peried she feels she has less urine. on occasion she will feel urgency PT-OP-C Subjective Start: 07/31/24 17:18 Freq: Status: Active Protocol: Document 08/29/24 09:45 [facility] (Rec: 08/29/24 10:02 [facility] [id number]) OP-PT Subjective Patient Comments Patient Comments pt notes she had PTSD after last visit with the ultrasound as she had felt that muscle in and it brought back up the way she felt , she does want to try the ultrasound again as she does feel it helped her and she only felt the muscle soreness for a couple of days after last visit. She only noticed one leak this past week with a sudden sneeze Patient Reported Progress Improving PT-OP-I Pelvic Floor Start: 07/31/24 17:18 Freq: Status: Active Protocol: Document 08/01/24 09:48 [facility] (Rec: 08/01/24 10:45 [facility] [id number]) Pelvic Floor Assessment Urine Pelvic Floor Surgery No Other Urinary Symptoms urinary stress incontinence Leakage Size Medium Other Leakage Causes leakage can vary from a little to wetting through her underware Leaks Per Day 1-2 Voiding Frequency 4 times during the day Nocturia 1 Pelvic Clock Pelvic Clock 3-6 Guarding,Tightness Pelvic Clock 6-9 Tightness Pelvic Clock Other left greater than right wall guarding and tightness Perineal Descent Resting Present Contraction Ability Voluntary Contraction Weak Voluntary Relaxation Weak Manual Muscle Testing Left 2 Manual Muscle Testing Right 2 Manual Muscle Testing Anterior 1 Manual Muscle Testing Posterior 1 Muscle Endurance (Seconds) 5 Comments Pelvic Floor Comments pt is currently not able to pull up from the perieum, she has tenderness over the perineum and scar tissue is present making it difficult to activate the external pelvic floor muscles she presents with guarding left greater than right in the levator ani PT-OP-Q Treatments Start: 07/31/24 17:18 Freq: Status: Active Protocol: Document 08/29/24 09:45 [facility] (Rec: 08/29/24 10:02 [facility] [id number]) Therapeutic Exercises Supine Exercises pelvic floor long holds Supine Exercise Name 2.0 resting tone Reps/Minutes 10 reps holding 10 seconds Comments 5.9 and max 10.2 pelvic floor assist with ball squeeze Reps/Minutes up to 5 sec hold and 10 sec rest Comments average 7.0 12.9 modified squat stretch in supine Supine Exercise Name HEP Reps/Minutes pt to hold as tolerated 1-3 minutes with Comments cues to relax the pelvic floor Standing Exercises standing adductor dynamic stretch Comments pt could feel this primarily on the left side Manual Therapy Treatment Consent Patient gave verbal consent for manual Yes treatment Soft Tissue Mobilization MFR over the left Transverse perienum and left adductor Mobilization Type Myofascial Release Intensity/Depth Moderate Body Position Hooklying Comments left sided tighteness vs the right side, both at the Transverse perineum as well as adductor attachments to the pubic bone Neuro Re-Education Treatment Other Activities NMES for the pelvic floor Comments pt went to level 9 she could feel it more in the front today, we did do the ultrasound first and mobilized the tissue at the perineum and she was not feeling the sensation around the scar tissue today she could feel more on the left wall too Self-Care/Home Management Treatment Education Patient Education Home Exercise Program Other Education reviewed bladder irritants and importance of increasing water intake, pt was edcated on fully relaxing her pelvic floor for fully being able to void PT-OP-R Modalities Start: 08/22/24 09:12 Freq: Status: Active Protocol: Document 08/29/24 09:45 [facility] (Rec: 08/29/24 12:57 [facility] [id number]) Ultrasound Therapy Treatment ultrasound at the perineum and left tranverse perineum Patient Position Supine Coupling Medium Ultrasound Gel Applicator Size (cm2) 2 Frequency Setting (mHz) 1 Mode Setting Continuous Duty Cycle 100% Intensity Setting (w/cm2) 1.5 Comments left sided transverse perineum tightness and restrictions along with tightness at the perineum, Krysta tolerated this well and was night as guarded today on the left Transverse perineum PT-OP-T Assessment and Plan Start: 07/31/24 17:18 Freq: Status: Active Protocol: Document 08/29/24 09:45 [facility] (Rec: 08/29/24 10:24 [facility] [id number]) Physical Therapy Assessment Goals 3 Impairment Pelvic floor muscle guarding and tension of the left>right levator ani making it difficult to fully relax the pelvic floor during contractions Group Home Goal (LTG) Krysta presents with improved ability to fully relax her pelvic floor at rest to improve full bladder emptying and decrease incontinence LTG Duration 8 weeks 2 Impairment Decreased pelvic floor strength and endurance Short Term Goal (STG) Krysta is able to sustain a pelvic floor contraction in supine x 10 seconds STG Duration 5 weeks Group Home Goal (LTG) Oj is able to sustain a pelvic floor contraction in standing x 10 seconds LTG Duration 8 weeks 1 Impairment urinary stress incontinence leaking 1-2 times per day Group Home Goal (LTG) Krysta reports a overall reduction of stress incontinence symptoms and is no longer leaking daily LTG Duration 8 weeks+ Assessment Summary Assessment We worked on standing dynamic adductor stretch leaning on plinth or couch for home and Krysta could really feel the left sided adductor tightness as well as tightness into the ischium on the left side only . She will work with this stretch at her high low table at work. I did the ultrasound again over the perineum and on the left side of the transverse perineal muscle. She was not as tight today as she was last visit and there is decreased tenderness over the perineum today as compared to last week . Improved lift of the perineum after the tissue was mobilized Physical Therapy Plan Frequency and Duration Frequency of Treatment 1x/Week Duration of treatment (weeks) 8 Plan of Care Start Date 08/01/24 Plan of Care End Date 09/26/24 Therapeutic Interventions Therapeutic Interventions Neuromuscular Re-education, Patient/Caregiver Education, Self-Care/Home Management,Soft Tissue Mobilization, Therapeutic Exercises Modalities Biofeedback,Electric Stimulation Other Therapeutic Interventions pt may benefit from NMES for the pelvic floor Next Visit Focus/Plan Next Note Type Treatment Note Next Visit Plan continue with ultrasound over the perineum and NMES as well as pelvic floor endurnace training, review standing adductor dyanmic stretch and how pt is doing with hooklying abduction with band. SHe may be ready to progress to [facility].
--- NOTE | 2024-09-05 10:33 | PT.OTN ---
Current Diagnoses Stress incontinence (female) (male) (09/05/24) Pelvic muscle wasting (09/05/24) Physical Therapy Treatment Note PT-OP-A Visit Information Start: 07/31/24 17:18 Freq: Status: Active Protocol: Document 09/05/24 09:53 SP (Rec: 09/05/24 10:36 SP Laptop) Out-Patient Physical Therapy Visit Information Visit Information Visit Type Treatment Note Visit Start Time 09:53 Visit Stop Time 10:33 Visit Number 5 Number of FARMWORKER GRAIN Visits 1 Evaluation Information Evaluation Date 08/01/24 PT-OP-B Current Condition Start: 07/31/24 17:18 Freq: Status: Active Protocol: Document 08/01/24 09:48 [facility] (Rec: 08/01/24 10:45 [facility] [id number]) Current Condition History of Current Condition Current Complaints jul 14 2022 last delivery History of Current Condition primary symptoms of stress incontinence that statred after her first delivery, he 3 kids are all 3 years apart. SHe has leaking with coughing sneeze, running. IT varies in amount and she can went through her under wear, on occasion when going to the bathroom she can stand up and will leak. After her third baby she noted that she had decreased sensation that she needs to go. She has had 6-7 UTI's in the last 10 years pt notes she feels that the and labia can feel heavy and swollen and uncomfortable She notes when she uses a tampon during her peried she feels she has less urine. on occasion she will feel urgency PT-OP-C Subjective Start: 07/31/24 17:18 Freq: Status: Active Protocol: Document 09/05/24 09:53 SP (Rec: 09/05/24 10:36 SP Laptop) OP-PT Subjective Patient Comments Patient Comments Pt reports has had hard time doing HEP with back pain, has been doing core rotation and is ok but the rest are challenging. Didn't feel sore after US last tx, wants to focus on US and stim today to help with PF contraction. Is able to feel more posteriorly. PT-OP-I Pelvic Floor Start: 07/31/24 17:18 Freq: Status: Active Protocol: Document 08/01/24 09:48 [facility] (Rec: 08/01/24 10:45 AMH [id number]) Pelvic Floor Assessment Urine Pelvic Floor Surgery No Other Urinary Symptoms urinary stress incontinence Leakage Size Medium Other Leakage Causes leakage can vary from a little to wetting through her underware Leaks Per Day 1-2 Voiding Frequency 4 times during the day Nocturia 1 Pelvic Clock Pelvic Clock 3-6 Guarding,Tightness Pelvic Clock 6-9 Tightness Pelvic Clock Other left greater than right wall guarding and tightness Perineal Descent Resting Present Contraction Ability Voluntary Contraction Weak Voluntary Relaxation Weak Manual Muscle Testing Left 2 Manual Muscle Testing Right 2 Manual Muscle Testing Anterior 1 Manual Muscle Testing Posterior 1 Muscle Endurance (Seconds) 5 Comments Pelvic Floor Comments pt is currently not able to pull up from the perieum, she has tenderness over the perineum and scar tissue is present making it difficult to activate the external pelvic floor muscles she presents with guarding left greater than right in the levator ani PT-OP-Q Treatments Start: 07/31/24 17:18 Freq: Status: Active Protocol: Document 09/05/24 09:53 SP (Rec: 09/05/24 10:36 SP Laptop) Therapeutic Exercises Supine Exercises modified squat stretch in supine Supine Exercise Name HEP Reps/Minutes pt to hold as tolerated 1-3 minutes with Comments cues to relax the pelvic floor Standing Exercises standing adductor dynamic stretch Comments pt could feel this primarily on the left side Neuro Re-Education Treatment Other Activities NMES for the pelvic floor Comments Continued Level 9 tolerance she could feel it more in the front and more in bottom back today, we did do the ultrasound first and mobilized the tissue at the perineum and continued decreased sensation around the scar tissue today. She could feel more on the left wall too, Cued for PF draw in co- contraction with NMES. PT-OP-R Modalities Start: 08/22/24 09:12 Freq: Status: Active Protocol: Document 09/05/24 09:53 SP (Rec: 09/05/24 10:36 SP Laptop) Ultrasound Therapy Treatment Ulrasound to adductor Patient Position Hooklying Coupling Medium Ultrasound Gel Applicator Size (cm2) 1 Frequency Setting (mHz) 1 Mode Setting Continuous Duty Cycle 100% Intensity Setting (w/cm2) 1.5 Comments Proximal to pubic bone ultrasound at the perineum and left tranverse perineum Patient Position Hooklying Coupling Medium Ultrasound Gel Applicator Size (cm2) 2 Frequency Setting (mHz) 1 Mode Setting Continuous Duty Cycle 100% Intensity Setting (w/cm2) 1.5 Comments left sided transverse perineum tightness and restrictions along with tightness at the perineum, Krysta tolerated this well and was night as guarded today on the left Transverse perineum PT-OP-T Assessment and Plan Start: 07/31/24 17:18 Freq: Status: Active Protocol: Document 09/05/24 09:53 SP (Rec: 09/05/24 10:36 SP Laptop) Physical Therapy Assessment Goals 3 Impairment Pelvic floor muscle guarding and tension of the left>right levator ani making it difficult to fully relax the pelvic floor during contractions Nursing Home Goal (LTG) Krysta presents with improved ability to fully relax her pelvic floor at rest to improve full bladder emptying and decrease incontinence LTG Duration 8 weeks 2 Impairment Decreased pelvic floor strength and endurance Short Term Goal (STG) Krysta is able to sustain a pelvic floor contraction in supine x 10 seconds STG Duration 5 weeks Forepart Rasper Goal (LTG) Oj is able to sustain a pelvic floor contraction in standing x 10 seconds LTG Duration 8 weeks 1 Impairment urinary stress incontinence leaking 1-2 times per day Forepart [place]asper Goal (LTG) Krysta reports a overall reduction of stress incontinence symptoms and is no longer leaking daily LTG Duration 8 weeks+ Assessment Summary Assessment Pt had good response to US to L adductor today, reports decreased tightness/soreness. Pt reported had increased sensation toward back on L today during NMES. Short time spent on HEP review, didn't get to neuromuscular feedback during ther ex today. Physical Therapy Plan Frequency and Duration Frequency of Treatment 1x/Week Duration of treatment (weeks) 8 Plan of Care Start Date 08/01/24 Plan of Care End Date 09/26/24 Therapeutic Interventions Therapeutic Interventions Neuromuscular Re-education, Patient/Caregiver Education, Self-Care/Home Management,Soft Tissue Mobilization, Therapeutic Exercises Modalities Biofeedback,Electric Stimulation Other Therapeutic Interventions pt may benefit from NMES for the pelvic floor Next Visit Focus/Plan Next Note Type Treatment Note Next Visit Plan continue with ultrasound over the perineum, adductor and NMES as well as continue pelvic floor endurance training, review standing adductor dynamic stretch in standing and how pt is doing with hooklying abduction with band. Next tx may be ready to progress to [facility].
--- NOTE | 2024-09-12 08:15 | PT.OTN ---
Current Diagnoses Stress incontinence (female) (male) (09/12/24) Pelvic muscle wasting (09/12/24) Physical Therapy Treatment Note PT-OP-A Visit Information Start: 07/31/24 17:18 Freq: Status: Active Protocol: Document 09/12/24 07:30 SP (Rec: 09/12/24 08:16 SP Laptop) Out-Patient Physical Therapy Visit Information Visit Information Visit Type Treatment Note Visit Note CHRIS George was given permission of pt to observe neuromuscular ther ex portion of tx while under direction supervision by LYNETTE Rosa. 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 SHe has leaking with coughing sneeze, running. IT varies in amount and she can went through her under wear, on occasion when going to the bathroom she can stand up and will leak. After her third baby she noted that she had decreased sensation that she needs to go. She has had 6-7 UTI's in the last 10 years pt notes she feels that the and labia can feel heavy and swollen and uncomfortable She notes when she uses a tampon during her peried she feels she has less urine. on occasion she will feel urgency PT-OP-C Subjective Start: 07/31/24 17:18 Freq: Status: Active Protocol: Document 09/12/24 07:30 SP (Rec: 09/12/24 08:16 SP Laptop) OP-PT Subjective Patient Comments Patient Comments Pt reports hasnt' been consistant with HEP, having back pain and challenged with 3 little kids under 6 to find time. She reports is gaining L hip AROM and feels US helping decrease tension in adductor and PF musculature. PT-OP-I Pelvic Floor Start: 07/31/24 17:18 Freq: Status: Active Protocol: Document 08/01/24 09:48 [facility] (Rec: 08/01/24 10:45 [facility] [id number]) Pelvic Floor Assessment Urine Pelvic Floor Surgery No Other Urinary Symptoms urinary stress incontinence Leakage Size Medium Other Leakage Causes leakage can vary from a little to wetting through her underware Leaks Per Day 1-2 Voiding Frequency 4 times during the day Nocturia 1 Pelvic Clock Pelvic Clock 3-6 Guarding,Tightness Pelvic Clock 6-9 Tightness Pelvic Clock Other left greater than right wall guarding and tightness Perineal Descent Resting Present Contraction Ability Voluntary Contraction Weak Voluntary Relaxation Weak Manual Muscle Testing Left 2 Manual Muscle Testing Right 2 Manual Muscle Testing Anterior 1 Manual Muscle Testing Posterior 1 Muscle Endurance (Seconds) 5 Comments Pelvic Floor Comments pt is currently not able to pull up from the perieum, she has tenderness over the perineum and scar tissue is present making it difficult to activate the external pelvic floor muscles she presents with guarding left greater than right in the levator ani PT-OP-Q Treatments Start: 07/31/24 17:18 Freq: Status: Active Protocol: Document 09/12/24 07:30 SP (Rec: 09/12/24 08:16 SP Laptop) Therapeutic Exercises Supine Exercises pelvic floor long holds Supine Exercise Name 2.0 resting tone Reps/Minutes 10 reps holding 10 seconds Comments 8.7 and max 12.9, rest 5.9 rest (Lowest approx 4) pelvic floor assist with ball squeeze Reps/Minutes up to 10 sec hold and 10 sec rest Comments average 5.6 max 10.3, rest avg 4.9 (approx lowest 2.5) PT-OP-R Modalities Start: 08/22/24 09:12 Freq: Status: Active Protocol: Document 09/12/24 07:30 SP (Rec: 09/12/24 08:16 SP Laptop) Ultrasound Therapy Treatment Ulrasound to adductor Patient Position Hooklying Coupling Medium Ultrasound Gel Applicator Size (cm2) 1 Frequency Setting (mHz) 1 Mode Setting Continuous Duty Cycle 100% Intensity Setting (w/cm2) 1.5 Comments Proximal to pubic bone ultrasound at the perineum and left tranverse perineum Patient Position Hooklying Coupling Medium Ultrasound Gel Applicator Size (cm2) 2 Frequency Setting (mHz) 1 Mode Setting Continuous Duty Cycle 100% Intensity Setting (w/cm2) 1.5 Comments left sided transverse perineum tightness and restrictions along with tightness at the perineum, Miychael tolerated this well and was night as guarded today on the left Transverse perineum PT-OP-T Assessment and Plan Start: 07/31/24 17:18 Freq: Status: Active Protocol: Document 09/12/24 07:30 SP (Rec: 09/12/24 08:16 SP Laptop) Physical Therapy Assessment Goals 3 Impairment Pelvic floor muscle guarding and tension of the left>right levator ani making it difficult to fully relax the pelvic floor during contractions Alf Goal (LTG) Krysta presents with improved ability to fully relax her pelvic floor at rest to improve full bladder emptying and decrease incontinence LTG Duration 8 weeks 2 Impairment Decreased pelvic floor strength and endurance Short Term Goal (STG) Krysta is able to sustain a pelvic floor contraction in supine x 10 seconds STG Duration 5 weeks Alf Goal (LTG) Oj is able to sustain a pelvic floor contraction in standing x 10 seconds LTG Duration 8 weeks 1 Impairment urinary stress incontinence leaking 1-2 times per day Dietetics Director Goal (LTG) Krysta reports a overall reduction of stress incontinence symptoms and is no longer leaking daily LTG Duration 8 weeks+ Assessment Summary Assessment Pt demonstrates increased pelvic floor strength during neuromuscular ther ex with improved L hip ER with less pain and restriction. Good response to US for tension reduction and increased ROM into L hip ER. Discussed performance of HEP crutial to progression in ROM and strength and support back discomfort continues to report . She verbalized understanding and will find time carryover home before next tx. Physical Therapy Plan Frequency and Duration Frequency of Treatment 1x/Week Duration of treatment (weeks) 8 Plan of Care Start Date 08/01/24 Plan of Care End Date 09/26/24 Therapeutic Interventions Therapeutic Interventions Neuromuscular Re-education, Patient/Caregiver Education, Self-Care/Home Management,Soft Tissue Mobilization, Therapeutic Exercises Modalities Biofeedback,Electric Stimulation Other Therapeutic Interventions pt may benefit from NMES for the pelvic floor Next Visit Focus/Plan Next Note Type Treatment Note Next Visit Plan continue with ultrasound over the perineum, adductor and NMES as well as continue pelvic floor endurance training, review standing adductor dynamic stretch in standing and how pt is doing with hooklying abduction with band. Next tx may be ready to progress to [facility].
--- NOTE | 2024-10-16 10:11 | PT.OPDS ---
Current Diagnoses Stress incontinence (female) (male) (09/12/24) Pelvic muscle wasting (09/12/24) Visit Care Team Role Provider Type Danielle Herrera MD Attending Provider Physician Family Provider Primary Care Provider Referring Provider Specialty: Family Practice Address: [address] [place] [address], [facility] [place], [place], [facility] Email: [email or web address] Visit Number Visit Number 6 Discharge Summary PT-OP-B Current Condition Start: 07/31/24 17:18 Freq: Status: Active Protocol: Document 08/01/24 09:48 [facility] (Rec: 08/01/24 10:45 [facility] [id number]) Current Condition History of Current Condition Current Complaints jul 14 2022 last delivery History of Current Condition primary symptoms of stress incontinence that statred after her first delivery, he 3 kids are all 3 years apart. SHe has leaking with coughing sneeze, running. IT varies in amount and she can went through her under wear, on occasion when going to the bathroom she can stand up and will leak. After her third baby she noted that she had decreased sensation that she needs to go. She has had 6-7 UTI's in the last 10 years pt notes she feels that the and labia can feel heavy and swollen and uncomfortable She notes when she uses a tampon during her peried she feels she has less urine. on occasion she will feel urgency PT-OP-C Subjective Start: 07/31/24 17:18 Freq: Status: Active Protocol: Document 09/12/24 07:30 SP (Rec: 09/12/24 08:16 SP Laptop) OP-PT Subjective Patient Comments Patient Comments Pt reports hasnt' been consistant with HEP, having back pain and challenged with 3 little kids under 6 to find time. She reports is gaining L hip AROM and feels US helping decrease tension in adductor and PF musculature. PT-OP-I Pelvic Floor Start: 07/31/24 17:18 Freq: Status: Active Protocol: Document 08/01/24 09:48 [facility]H (Rec: 08/01/24 10:45 AMH [id number]) Pelvic Floor Assessment Urine Pelvic Floor Surgery No Other Urinary Symptoms urinary stress incontinence Leakage Size Medium Other Leakage Causes leakage can vary from a little to wetting through her underware Leaks Per Day 1-2 Voiding Frequency 4 times during the day Nocturia 1 Pelvic Clock Pelvic Clock 3-6 Guarding,Tightness Pelvic Clock 6-9 Tightness Pelvic Clock Other left greater than right wall guarding and tightness Perineal Descent Resting Present Contraction Ability Voluntary Contraction Weak Voluntary Relaxation Weak Manual Muscle Testing Left 2 Manual Muscle Testing Right 2 Manual Muscle Testing Anterior 1 Manual Muscle Testing Posterior 1 Muscle Endurance (Seconds) 5 Comments Pelvic Floor Comments pt is currently not able to pull up from the perieum, she has tenderness over the perineum and scar tissue is present making it difficult to activate the external pelvic floor muscles she presents with guarding left greater than right in the levator ani PT-OP-T Assessment and Plan Start: 07/31/24 17:18 Freq: Status: Active Protocol: Document 10/16/24 10:09 [facility] (Rec: 10/16/24 10:11 [facility] [id number][facility] Physical Therapy Assessment Goals 3 Impairment Pelvic floor muscle guarding and tension of the left>right levator ani making it difficult to fully relax the pelvic floor during contractions Senior Care Goal (LTG) Krysta presents with improved ability to fully relax her pelvic floor at rest to improve full bladder emptying and decrease incontinence good progress LTG Duration 8 weeks 2 Impairment Decreased pelvic floor strength and endurance Short Term Goal (STG) Krysta is able to sustain a pelvic floor contraction in supine x 10 seconds STG Duration 5 weeks [employer] Inspector Goal (LTG) Krysta is able to sustain a pelvic floor contraction in standing x 10 seconds good progress LTG Duration 8 weeks 1 Impairment urinary stress incontinence leaking 1-2 times per day Senior Care Goal (LTG) Krysta reports a overall reduction of stress incontinence symptoms and is no longer leaking daily good progress LTG Duration 8 weeks+ Assessment Summary Assessment Krysta has cx her remaining PT appointments and has no further visits scheduled at this time. At the time of her last visit 09/12/24 she demonstrated improved pelvic floor strength and decreased complaints of leakage. Physical Therapy Plan Discharge Physical Therapy Discharge Reasons Patient Request Discharge Comments pt is no longer attending PT
== END 2024-10-17 14:25 | disposition home or self-care (01) ==
LOC: PHYS 07:30
PROVIDERS: Family Provider Family Medicine; PCP Family Medicine; Referring Provider Family Medicine; Visit Provider Family Medicine
DX: N39.3 Stress incontinence (female) (male) (principal); N81.84 Pelvic muscle wasting
CPT/HCPCS: 97035; 97110; 97112; 97140; 97161; 97535